=== PATIENT | male | born 1950 | race African-American/Black ===

== ENCOUNTER 2016-05-15 14:48 | Inpatient (IN) | payer OTHER, MEDICARE ==
[2016-05-15] VITALS (12 sets, daily range): BP systolic 140–171; BP diastolic 75–98; PULSE 47–61; RESP 15–20; TEMP 98–98.3; O2SAT 96–100
[~2016-05-15] VITALS: Ht 188 cm; Wt 94.4 kg
[2016-05-15] MEDS ORDERED: SODIUM CHLORIDE 0.9% FLUSH 5 ML FLUSH IVF PRN ×2 (15:30→17:30)
--- NOTE | 2016-05-15 15:40 | PD ---
HPI Chief Complaint: Neuro Symptoms/ Deficits Time Seen by Provider: 15:05 Travel History International Travel<30 days: No Contact w/Intl Traveler<30days: No Traveled to known affect area: No History of Present Illness HPI This is a 65-year-old male presents emergency department for complaints of double vision which she awoke with this morning approximately 04 30. Patient is also been complaining of some weakness and an unsteady gait. Patient does have a history of stroke leaving some mild unsteady gait that this states this is worse. Patient states he only has double vision when he opens both of his eyes but when he covers his right eye the double vision goes away. States he also has some blurred vision in his right eye. Denies any difficulties left eye denies any other focalized weakness. Denies any headaches denies any chest pain abdominal pain nausea vomiting or diarrhea. PFSH Past Medical History Narrative Medical hx of TIA, Hypertension, Hyperlipid. Past Surgical History Narrative Surgical Cholecystectomy, Hernia repair. Social History Tobacco Use: Yes Allergies-Medications (Allergen,Severity, Reaction): Coded Allergies: No Known Allergies (Unverified , 05/15/16) Reported Meds & Prescriptions Reported Meds & Active Scripts Active Reported Metoprolol Succinate ER 24 HR (Metoprolol Succinate) 25 Mg Tab 25 Mg PO DAILY Amlodipine-Valsartan 5-320 Mg Tab 1 Tab PO DAILY Plavix (Clopidogrel Bisulfate) 75 Mg Tab 75 Mg PO DAILY Crestor (Rosuvastatin Calcium) 20 Mg Tab 20 Mg PO DAILY Metformin (Metformin HCl) 1,000 Mg Tab 1,000 Mg PO BIDPC With meals Review of Systems Except as stated in HPI: all other systems reviewed are Neg Physical Exam Narrative GENERAL: Well-developed well-nourished smells of cigarette smoke but in no apparent distress. He is holding his right eye shut. SKIN: Warm and dry. HEAD: Atraumatic. Normocephalic. EYES: Pupils equal and round. No scleral icterus. No injection or drainage. ENT: No nasal bleeding or discharge. Mucous membranes pink and moist. NECK: Trachea midline. No JVD. CARDIOVASCULAR: Regular rate and rhythm. No murmur appreciated. RESPIRATORY: No accessory muscle use. Clear to auscultation. Breath sounds equal bilaterally. GASTROINTESTINAL: Abdomen soft, non-tender, nondistended. Hepatic and splenic margins not palpable. MUSCULOSKELETAL: No obvious deformities. No clubbing. No cyanosis. No edema. NEUROLOGICAL: Awake and alert oriented 3, patient has 5 out of 5 strength in all 4 extremities, cerebellar testing is normal. 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 Patient is not able to convert his eyes on his nose. Remainder of his ocular movements appear to be intact.. Cranial nerves II-XII on the left appear to be intact, cranial nerves II and IV-XII appear to be intact on the right. PSYCHIATRIC: Appropriate mood and affect; insight and judgment normal. Data Data Last Documented VS Vital Signs Date Time Temp Pulse Resp B/P Pulse Ox O2 Delivery O2 Flow Rate FiO2 05/15/16 17:30 48 16 140/75 97 Room Air 05/15/16 14:53 98.3 Orders Electrocardiogram (05/15/16 15:30) Complete Blood Count With Diff (05/15/16 15:30) Comprehensive Metabolic Panel (05/15/16 15:30) Prothrombin Time / Inr (Pt) (05/15/16 15:30) Act Partial Throm Time (Ptt) (05/15/16 15:30) Troponin I (05/15/16 15:30) Thyroid Stimulating Hormone (05/15/16 15:30) Urinalysis - C+S If Indicated (05/15/16 15:30) Chest, Single Ap (05/15/16 15:30) Ct Brain W/O Iv Contrast(Rout) (05/15/16 15:30) Blood Glucose (05/15/16 15:30) Ecg Monitoring (05/15/16 15:30) Iv Access Insert/Monitor (05/15/16 15:30) Oximetry (05/15/16 15:30) Sodium Chloride 0.9% Flush (Ns Flush) (05/15/16 15:30) Aspirin Chew (Aspirin Chew) (05/15/16 15:45) Admit To Inpatient (05/15/16 ) Vital Signs (Adult) Q4H (05/15/16 17:25) Nih Stroke Scale - Nihss .On admission and discharge (05/15/16 17:25) Neuro Checks Q2HX12,Q4H (05/15/16 17:25) Ot Request For Service (05/15/16 17:25) Consult Pt Eval & Treat (05/15/16 17:25) Swallow Eval W/ St (05/15/16 17:25) Case Management Consult (05/15/16 ) Nursing Bedside Swallow Assess .ONCE (05/15/16 17:25) Scd Bilateral/Knee High MARIJA.QSHIFT (05/15/16 17:25) Lipid Profile (05/16/16 06:00) Holter Monitor Recording (05/15/16 ) Mra Brain W/O Contrast (Cow) (05/15/16 ) Mri Brain W/O Contrast (05/15/16 ) Echo 2d Comp W/Dopp(Routine) (05/15/16 ) Resp Oxygen Geovanni C Titrat 1-4 L (05/15/16 ) ^ Hold Medication (05/15/16 17:25) Consult Neurology (05/15/16 ) Sodium Chloride 0.9% Flush (Ns Flush) (05/15/16 21:00) Sodium Chloride 0.9% Flush (Ns Flush) (05/15/16 17:30) Aspirin (Aspirin) (05/16/16 09:00) Atorvastatin (Lipitor) (05/15/16 21:00) Bedside Glucose MARIJA.AC&HS (05/15/16 17:25) ^ Discontinue Insulin Orders (05/15/16 17:25) Insulin Aspart Supplemtl Scale (Novolog (05/15/16 21:00) Dextrose 50% In Abdon (Vial) Inj (D50w (Vi (05/15/16 17:30) Glucagon Inj (Glucagon Inj) (05/15/16 17:30) Facs Teacher / Telemetry MARIJA.Q8H (05/15/16 17:25) Scd Bilateral/Knee High MARIJA.BID (05/15/16 17:25) Inpatient Certification (05/15/16 ) Admit Order (Ed Use Only) (05/15/16 17:32) Us Carotid Arteries Comp Bilat (05/16/16 ) Labs Laboratory Tests Test 05/15/16 05/15/16 15:50 17:00 White Blood Count 8.1 TH/MM3 Red Blood Count 4.70 MIL/MM3 Hemoglobin 13.1 GM/DL Hematocrit 40.2 % Mean Corpuscular Volume 85.5 FL Mean Corpuscular Hemoglobin 27.9 PG Mean Corpuscular Hemoglobin 32.7 % Concent Red Cell Distribution Width 14.3 % Platelet Count 227 TH/MM3 Mean Platelet Volume 9.0 FL Neutrophils (%) (Auto) 64.1 % Lymphocytes (%) (Auto) 25.4 % Monocytes (%) (Auto) 9.0 % Eosinophils (%) (Auto) 0.7 % Basophils (%) (Auto) 0.8 % Neutrophils # (Auto) 5.1 TH/MM3 Lymphocytes # (Auto) 2.1 TH/MM3 Monocytes # (Auto) 0.7 TH/MM3 Eosinophils # (Auto) 0.1 TH/MM3 Basophils # (Auto) 0.1 TH/MM3 CBC Comment DIFF FINAL Differential Comment Prothrombin Time 10.9 SEC Prothromb Time International 1.0 RATIO Ratio Activated Partial 27.3 SEC Thromboplast Time Sodium Level 142 MEQ/L Potassium Level 4.2 MEQ/L Chloride Level 107 MEQ/L Carbon Dioxide Level 27.9 MEQ/L Anion Gap 7 MEQ/L Blood Urea Nitrogen 17 MG/DL Creatinine 0.89 MG/DL Estimat Glomerular Filtration 103 ML/MIN Rate Random Glucose 160 MG/DL Calcium Level 8.7 MG/DL Total Bilirubin 0.5 MG/DL Aspartate Amino Transf 19 U/L (AST/SGOT) Alanine Aminotransferase 23 U/L (ALT/SGPT) Alkaline Phosphatase 56 U/L Troponin I 0.04 NG/ML Total Protein 6.6 GM/DL Albumin 3.4 GM/DL Thyroid Stimulating Hormone 1.310 uIU/ML 3rd Gen Urine Collection Type CLEAN CATCH Urine Color YELLOW Urine Turbidity CL Urine pH 6.0 Urine Specific [place] 1.027 Urine Protein TRACE mg/dL Urine Glucose (UA) 500 mg/dL Urine Ketones NEG mg/dL Urine Occult Blood NEG Urine Nitrite NEG Urine Bilirubin NEG Urine Leukocyte Esterase NEG Urine RBC 0-3 /hpf Urine WBC 0-2 /hpf Urine Squamous Epithelial 0-5 /hpf Cells Urine Mucus OCC /lpf Microscopic Urinalysis Comment CULT NOT INDICATED MDM Medical Decision Making Medical Screen Exam Complete: Yes Emergency Medical Condition: Yes Interpretation(s) EKG shows normal sinus rhythm. There are low voltages in the limb leads, normal axis and normal R-wave progression. No concerning ST T changes. This normal EKG. Differential Diagnosis Acute CVA, isolated cranial nerve III palsy, internuclear ophthalmoplegia. Narrative Course Patient roomed in the emergency department, workup is initiated patient will be discussed with Dr. Nieves to follow workup and disposition appropriately. Brian Sinclair MD May 15, 2016 15:40
[2016-05-15] MEDS ORDERED: ASPIRIN 81 MG CHEW TAB CHEW ONE (15:45)
--- NOTE | 2016-05-15 15:55 | RADHPO ---
EXAM DATE/TIME: 05/15/2016 15:37 [facility] COMPARISON: No previous studies available for comparison. INDICATIONS : Stroke like symptoms; double vision today. MEDICAL HISTORY : Hypertension. Diabetes mellitus type II. Stroke. SURGICAL HISTORY : None. ENCOUNTER: Initial ACUITY: 1 day PAIN SCORE: 0/10 LOCATION: Bilateral chest FINDINGS: A single view of the chest demonstrates the lungs to be symmetrically aerated without evidence of mas s, infiltrate or effusion. The cardiomediastinal contours are unremarkable. Osseous structures are intact. CONCLUSION: No acute disease. Sam Self MD on May 15, 2016 at 15:53 Board Certified Radiologist. This report was verified electronically.
--- NOTE | 2016-05-15 16:21 | RADHPO ---
EXAM DATE/TIME: 05/15/2016 15:55 [facility] COMPARISON: No previous studies available for comparison. INDICATIONS : Altered mental status. Double vision. Weakness. Unsteady gait. RADIATION DOSE: 61.84 CTDIvol (mGy) MEDICAL HISTORY : Diabetes mellitus type 2. Hypertension. Cerebrovascular disease. SURGICAL HISTORY : None. ENCOUNTER: Initial ACUITY: 1 day PAIN SCALE: 0/10 LOCATION: cranial TECHNIQUE: Multiple contiguous axial images were obtained of the head. Using automated exposure control and adj ustment of the mA and/or kV according to patient size, radiation dose was kept as low as reasonably a chievable to obtain optimal diagnostic quality images. FINDINGS: CEREBRUM: The ventricles are normal for age. No evidence of midline shift, mass lesion, hemorrhage or acute in farction. No extra-axial fluid collections are seen. POSTERIOR FOSSA: The cerebellum and brainstem are intact. The 4th ventricle is midline. The cerebellopontine angle i s unremarkable. EXTRACRANIAL: The visualized portion of the orbits is intact. SKULL: The calvaria is intact. No evidence of skull fracture. CONCLUSION: Normal examination for a patient of this age. Karsten Abdi MD on May 15, 2016 at 16:18 Board Certified Radiologist. This report was verified electronically.
[2016-05-15 16:22] LABS: APTT (PATIENT) 27.3 SEC (24.3-30.1); PROTHROMBIN TIME - PATIENT 10.9 SEC (9.8-11.6)
[2016-05-15] MEDS ORDERED: PLAV75TA29 PO (16:29)
[2016-05-15] MEDS ORDERED: ROSU20 PO (16:29)
[2016-05-15] MEDS ORDERED: METF1000 PO (16:29)
[2016-05-15] MEDS ORDERED: METO25TA6 PO (16:29)
[2016-05-15] MEDS ORDERED: AMLO-170 PO (16:29)
[2016-05-15 16:33] LABS: CHLORIDE 107 MEQ/L (98-107); POTASSIUM 4.2 MEQ/L (3.5-5.1); SODIUM (NA) 142 MEQ/L (136-145)
[2016-05-15 16:37] LABS: ANION GAP 7 MEQ/L (5-15); BICARBONATE 27.9 MEQ/L (21.0-32.0); BLOOD UREA NITROGEN 17 MG/DL (7-18)
[2016-05-15 16:38] LABS: AUTOMATED NEUTROPHIL # 5.1 TH/MM3 (1.8-7.7); BASOPHIL # 0.1 TH/MM3 (0-0.2); BASOPHIL % 0.8 % (0.0-2.0); EOSINOPHIL # 0.1 TH/MM3 (0-0.4); EOSINOPHIL % 0.7 % (0.0-4.0); HEMATOCRIT 40.2 % (39.0-51.0); HEMO FLAGS DIFF FINAL; LYMPH % 25.4 % (9.0-44.0); LYMPHOCYTE # 2.1 TH/MM3 (1.0-4.8); MEAN CELL VOLUME 85.5 FL (80.0-100.0); MEAN CORPUSCULAR HEMOGLOBIN 27.9 PG (27.0-34.0); MEAN CORPUSCULAR HGB CONC 32.7 % (32.0-36.0); NEUT % 64.1 % (16.0-70.0); PLATELET COUNT 227 TH/MM3 (150-450); RED CELL DISTRIBUTION WIDTH 14.3 % (11.6-17.2); WHITE BLOOD COUNT 8.1 TH/MM3 (4.0-11.0)
[2016-05-15 16:40] LABS: ALT (GPT) 23 U/L (12-78); AST (GOT) 19 U/L (15-37); GLOMERULAR FILTRATION RATE 103 ML/MIN (>89)
[2016-05-15 16:42] LABS: TOTAL BILIRUBIN ADULT 0.5 MG/DL (0.2-1.0)
[2016-05-15 16:43] LABS: ALKALINE PHOSPHATASE 56 U/L (45-117)
--- NOTE | 2016-05-15 17:01 | PD ---
Physical Exam Date Seen by Provider: May 15, 2016 Time Seen by Provider: 16:58 Narrative This 65-year-old male says that around 4:00 this morning he got up and felt a bit unsteady. When he got up at 8:00 this morning he noted that his vision was not right". He is not having headache unsteady walking. He has a history of a stroke several years ago. He is supposed to be on Plavix and Crestor but he has not been taking his medication for some time. He also has diabetes and is supposed to take metformin but has not been taking it. He was seen initially by Dr. Sinclair. The scan has been read as negative. His blood sugar is 160 on my assessment he has some mild ptosis of his right eye. He is unable to abduct the right eye. Movement of the left eye appears normal. Sensation of the face is intact. There is no facial asymmetry. Db2 Dba are equal and leg strength is symmetric Data Data Last Documented VS Vital Signs Date Time Temp Pulse Resp B/P Pulse Ox O2 Delivery O2 Flow Rate FiO2 05/15/16 17:00 56 16 99 Room Air 05/15/16 16:30 151/80 05/15/16 14:53 98.3 Orders Electrocardiogram (05/15/16 15:30) Complete Blood Count With Diff (05/15/16 15:30) Comprehensive Metabolic Panel (05/15/16 15:30) Prothrombin Time / Inr (Pt) (05/15/16 15:30) Act Partial Throm Time (Ptt) (05/15/16 15:30) Troponin I (05/15/16 15:30) Thyroid Stimulating Hormone (05/15/16 15:30) Urinalysis - C+S If Indicated (05/15/16 15:30) Chest, Single Ap (05/15/16 15:30) Ct Brain W/O Iv Contrast(Rout) (05/15/16 15:30) Blood Glucose (05/15/16 15:30) Ecg Monitoring (05/15/16 15:30) Iv Access Insert/Monitor (05/15/16 15:30) Oximetry (05/15/16 15:30) Sodium Chloride 0.9% Flush (Ns Flush) (05/15/16 15:30) Aspirin Chew (Aspirin Chew) (05/15/16 15:45) Labs Laboratory Tests Test 05/15/16 05/15/16 15:50 17:00 White Blood Count 8.1 TH/MM3 Red Blood Count 4.70 MIL/MM3 Hemoglobin 13.1 GM/DL Hematocrit 40.2 % Mean Corpuscular Volume 85.5 FL Mean Corpuscular Hemoglobin 27.9 PG Mean Corpuscular Hemoglobin 32.7 % Concent Red Cell Distribution Width 14.3 % Platelet Count 227 TH/MM3 Mean Platelet Volume 9.0 FL Neutrophils (%) (Auto) 64.1 % Lymphocytes (%) (Auto) 25.4 % Monocytes (%) (Auto) 9.0 % Eosinophils (%) (Auto) 0.7 % Basophils (%) (Auto) 0.8 % Neutrophils # (Auto) 5.1 TH/MM3 Lymphocytes # (Auto) 2.1 TH/MM3 Monocytes # (Auto) 0.7 TH/MM3 Eosinophils # (Auto) 0.1 TH/MM3 Basophils # (Auto) 0.1 TH/MM3 CBC Comment DIFF FINAL Differential Comment Prothrombin Time 10.9 SEC Prothromb Time International 1.0 RATIO Ratio Activated Partial 27.3 SEC Thromboplast Time Sodium Level 142 MEQ/L Potassium Level 4.2 MEQ/L Chloride Level 107 MEQ/L Carbon Dioxide Level 27.9 MEQ/L Anion Gap 7 MEQ/L Blood Urea Nitrogen 17 MG/DL Creatinine 0.89 MG/DL Estimat Glomerular Filtration 103 ML/MIN Rate Random Glucose 160 MG/DL Calcium Level 8.7 MG/DL Total Bilirubin 0.5 MG/DL Aspartate Amino Transf 19 U/L (AST/SGOT) Alanine Aminotransferase 23 U/L (ALT/SGPT) Alkaline Phosphatase 56 U/L Troponin I 0.04 NG/ML Total Protein 6.6 GM/DL Albumin 3.4 GM/DL Thyroid Stimulating Hormone 1.310 uIU/ML 3rd Gen Urine Collection Type CLEAN CATCH Urine Color YELLOW Urine Turbidity CL Urine pH 6.0 Urine Specific [place] 1.027 Urine Protein TRACE mg/dL Urine Glucose (UA) 500 mg/dL Urine Ketones NEG mg/dL Urine Occult Blood NEG Urine Nitrite NEG Urine Bilirubin NEG Urine Leukocyte Esterase NEG Urine RBC 0-3 /hpf Urine WBC 0-2 /hpf Urine Squamous Epithelial 0-5 /hpf Cells Urine Mucus OCC /lpf Microscopic Urinalysis Comment CULT NOT INDICATED [facility] Medical Record Reviewed: Yes Supervised Visit with ZAHEER: No Differential Diagnosis Differential includes diabetic third nerve palsy, CVA Narrative Course Patient is complaining of feeling lightheaded and unsteady on his feet. Discussed the case with Dr. Garcia. The patient will be admitted Diagnosis Primary Impression: Third nerve palsy of right eye Additional Impression: Acute CVA (cerebrovascular accident) Aniceto Cortez MD May 15, 2016 17:01
[2016-05-15 17:12] LABS: BLOOD, URINE NEG (NEG); GLUCOSE,URINE 500 mg/dL (NEG); KETONE, URINE NEG (NEG); NITRITE,URINE NEG (NEG)
[2016-05-15 17:23] LABS: METHOD OF COLLECTION CLEAN CATCH
[2016-05-15 17:24] LABS: URINE COLOR YELLOW (YELLW/STRAW)
[2016-05-15 17:26] LABS: MUCUS URINE OCC /lpf (OCC); RBC, URINE 0-3 /hpf (0-3); WBC, URINE 0-2 /hpf (0-5)
[2016-05-15 17:27] LABS: COMMENT (UR) CULT NOT INDICATED; CULTURE IF INDICATED CULT NOT INDICATED; SQUAMOUS EPITHELIAL CELL URINE 0-5 /hpf (0-5)
[2016-05-15] MEDS ORDERED: GLUCAGON 1 MG/ML VIAL IM/SQ PRN (17:30)
[2016-05-15] MEDS ORDERED: DEXTROSE 50% IN WATER 50 ML VIAL(D50) IV PUSH PRN (17:30)
--- NOTE | 2016-05-15 17:44 | HHI.HP ---
[facility] Phys[facility] Non-Staff Admission Diagnosis R 3RD NERVE PALSY, CVA Diagnoses: (1) Third nerve palsy of right eye Travel History International Travel<30 Days: No Contact w/Intl Traveler <30 Da: No Traveled to Known Affected Are: No History of Present Illness This is a pleasant 65-year-old male with past medical history of type 2 diabetes , hypertension and stroke approximately 12 years ago with no residual deficits who presented to the ER this morning after waking up with double vision this morning. Patient woke up with these symptoms of diplopia. When he looked in the mirror he discovered he could not move his right eye to his left. He had some mild symptoms of disequilibrium when walking. Otherwise no paresthesias, slurred speech, dizziness, vertigo, or unilateral weakness. No vision loss or hearing loss. The patient normally takes Plavix however he states he has not taken any of his medications over the past 10 days as he had been traveling. His is also noticed that he has frequent urination however patient denies dysuria. He has not been checking his sugar. He states normally his diabetes is controlled for which he takes metformin. Review of Systems Constitutional: DENIES: Fever, Chills Endocrine: COMPLAINS OF: Polyuria Eyes: COMPLAINS OF: Diplopia, DENIES: Vision loss Ears, nose, mouth, throat: DENIES: Hearing loss, Vertigo Respiratory: DENIES: Cough, Shortness of breath Cardiovascular: DENIES: Chest pain, Lower Extremity Edema Gastrointestinal: DENIES: Abdominal pain, Vomiting Genitourinary: DENIES: Urgency, Dysuria Musculoskeletal: DENIES: Back pain, Neck pain Integumentary: DENIES: Pruritus, Rash Hematologic/lymphatic: DENIES: Lymphadenopathy Neurologic: DENIES: Abnormal gait, Headache, Localized weakness, Paresthesias, Speech Problems, Tremor Psychiatric: DENIES: Anxiety, Confusion Past Family Social History Past Medical History Diabetes Hypertension Hyperlipidemia Previous CVA Reported Medications Allergies Coded Allergies Type Severity Reaction Last Updated Verified No Known Allergies 05/15/16 No Active Scripts Medications Dose Route/Sig Days Date Category Dose Instructions Metoprolol Succinate ER 24 HR (Metoprolol Succinate) 25 Mg Tab 25 Mg PO DAILY 05/15/16 Reported Amlodipine-Valsartan 5-320 Mg Tab 1 Tab PO DAILY 05/15/16 Reported Plavix (Clopidogrel Bisulfate) 75 Mg Tab 75 Mg PO DAILY 05/15/16 Reported Crestor (Rosuvastatin Calcium) 20 Mg Tab 20 Mg PO DAILY 05/15/16 Reported Metformin (Metformin HCl) 1,000 Mg Tab 1,000 Mg PO BIDPC 05/15/16 Reported With meals Allergies: Coded Allergies: No Known Allergies (Unverified , 05/15/16) Family History No history of eye palsies in the family Social History No alcohol tobacco or drug use Physical Exam Vital Signs Vital Signs Date Time Temp Pulse Resp B/P Pulse Ox O2 Delivery O2 Flow Rate FiO2 05/15/16 17:41 99 21 05/15/16 17:00 56 16 99 Room Air 05/15/16 16:30 55 16 151/80 99 Room Air 05/15/16 16:00 55 16 158/85 100 Room Air 05/15/16 15:15 16 98 Room Air 05/15/16 15:10 60 16 98 Room Air 05/15/16 14:53 98.3 61 15 171/92 96 Physical Exam GENERAL: Well-nourished, well-developed patient. SKIN: Warm and dry. HEAD: Normocephalic. EYES: No scleral icterus. No injection or drainage. NECK: Supple, trachea midline. No JVD or lymphadenopathy. CARDIOVASCULAR: Regular rate and rhythm without murmurs, gallops, or rubs. RESPIRATORY: Breath sounds equal bilaterally. No accessory muscle use. GASTROINTESTINAL: Abdomen soft, non-tender, nondistended. EXTREMITIES: No cyanosis, or edema. NEUROLOGICAL: Awake, alert, and oriented x 3. Non-focal. He is unable to abduct his right eye past the midline. All other extraocular muscles intact. Speech normal. Face symmetric. 5 out of 5 strength in all 4 extremities. Laboratory Laboratory Tests Test 05/15/16 05/15/16 15:50 17:00 White Blood Count 8.1 Red Blood Count 4.70 Hemoglobin 13.1 Hematocrit 40.2 Mean Corpuscular Volume 85.5 Mean Corpuscular Hemoglobin 27.9 Mean Corpuscular Hemoglobin 32.7 Concent Red Cell Distribution Width 14.3 Platelet Count 227 Mean Platelet Volume 9.0 Neutrophils (%) (Auto) 64.1 Lymphocytes (%) (Auto) 25.4 Monocytes (%) (Auto) 9.0 Eosinophils (%) (Auto) 0.7 Basophils (%) (Auto) 0.8 Neutrophils # (Auto) 5.1 Lymphocytes # (Auto) 2.1 Monocytes # (Auto) 0.7 Eosinophils # (Auto) 0.1 Basophils # (Auto) 0.1 CBC Comment DIFF FINAL Differential Comment Prothrombin Time 10.9 Prothromb Time International 1.0 Ratio Activated Partial 27.3 Thromboplast Time Sodium Level 142 Potassium Level 4.2 Chloride Level 107 Carbon Dioxide Level 27.9 Anion Gap 7 Blood Urea Nitrogen 17 Creatinine 0.89 Estimat Glomerular Filtration 103 Rate Random Glucose 160 Calcium Level 8.7 Total Bilirubin 0.5 Aspartate Amino Transf 19 (AST/SGOT) Alanine Aminotransferase 23 (ALT/SGPT) Alkaline Phosphatase 56 Troponin I 0.04 Total Protein 6.6 Albumin 3.4 Thyroid Stimulating Hormone 1.310 3rd Gen Urine Collection Type CLEAN CATCH Urine Color YELLOW Urine Turbidity CL Urine pH 6.0 Urine Specific [place] 1.027 Urine Protein TRACE Urine Glucose (UA) 500 Urine Ketones NEG Urine Occult Blood NEG Urine Nitrite NEG Urine Bilirubin NEG Urine Leukocyte Esterase NEG Urine RBC 0-3 Urine WBC 0-2 Urine Squamous Epithelial 0-5 Cells Urine Mucus OCC Microscopic Urinalysis Comment CULT NOT INDICATED Result Diagram: 05/15/16 1550 05/15/16 1550 Imaging Last Impressions Head CT 05/15/16 1530 Signed Impressions: Service Date/Time: May 15:55 - CONCLUSION: Normal examination for a patient of this age. Karsten Abdi MD Chest X-Ray 05/15/16 1530 Signed Impressions: Service Date/Time: May 15:37 - CONCLUSION: No acute disease. Sam Self MD Assessment and Plan Assessment and Plan -Right third nerve palsy - head CT is negative. No other neurologic signs or symptoms. 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 Per neurology will obtain MRI and MRA brain, rule out aneurysm. Doppler carotid. Telemetry. Continue Plavix. Consider ophthalmology consult. Diabetes type II. Hold metformin. Sliding scale insulin. Hypertension -resume medications of brain MRI negative. Hyperlipidemia-continue statin. Previous CVA-continue Plavix. DVT prophylaxis with SCDs. Pilger,Jennifer Danni MD May 15, 2016 17:44
[2016-05-15] MEDS: INSULIN ASPART SUPPLEMENTAL SCALE SQ SCH (20:42)
[2016-05-15] MEDS: SODIUM CHLORIDE 0.9% FLUSH 5 ML FLUSH IVF SCH (20:47)
[2016-05-15] MEDS ORDERED: ATORVASTATIN 10 MG TAB PO SCH (21:00)
[2016-05-16] VITALS: BP 166/100; PULSE 47; RESP 20; TEMP 98; O2SAT 100
[2016-05-16 04:00] VITALS: BP 150/89; PULSE 48; RESP 20; TEMP 97.6; O2SAT 97
[2016-05-16] MEDS: INSULIN ASPART SUPPLEMENTAL SCALE SQ SCH ×2 (06:33→11:00)
[2016-05-16 07:49] LABS: POTASSIUM 3.7 MEQ/L (3.5-5.1)
[2016-05-16 07:53] LABS: BICARBONATE 27.7 MEQ/L (21.0-32.0)
[2016-05-16 08:00] VITALS: BP 140/79; PULSE 50; PULSE 54; RESP 16; TEMP 96.7; O2SAT 98
--- NOTE | 2016-05-16 08:11 | RADHPO ---
EXAM DATE/TIME: 05/16/2016 07:38 [facility] COMPARISON: No previous studies available for comparison. INDICATIONS : Amorosis fugax. MEDICAL HISTORY : Hypertension. Hypercholesterolemia. Cerebrovascular accident. Transient ischemic attack. Diabetes. SURGICAL HISTORY : Cholecystectomy. ENCOUNTER: Initial ACUITY: 1 day PAIN SCORE: 0/10 LOCATION: Bilateral neck PEAK SYSTOLIC VELOCITIES (cm/sec): ICA/CCA RATIO: Right: 1.0 Left: 1.0 ICA: Right: 96 Left: 92 CCA: Right: 100 Left: 89 ECA: Right: 65 Left: 65 VERTEBRAL: Right: 50 antegrade Left: 45 antegrade Elevated flow velocities and ICA/CCA ratios have been found to correlate with increased degrees of vessel stenosis, calculated as percentage of diameter relative to a normal segment of distal ICA/CCA FINDINGS: RIGHT CAROTID: No significant stenosis is visualized. There is minimal plaque in the bulb. The waveforms are within normal limits. LEFT CAROTID: No significant stenosis is visualized. There is minimal plaque in the bulb. The waveforms are within normal limits. VERTEBRAL ARTERIES: Antegrade flow is seen in both vertebral arteries. MISCELLANEOUS: None. CONCLUSION: 1. Minimal carotid bulb atherosclerotic disease bilaterally. However, no significant stenosis is pres ent within either internal carotid artery. 2. Antegrade flow is present within both vertebral arteries. Fernando Zuniga MD on May 16, 2016 at 8:08 Board Certified Radiologist. This report was verified electronically.
[2016-05-16] MEDS: SODIUM CHLORIDE 0.9% FLUSH 5 ML FLUSH IVF SCH (08:41)
[2016-05-16] MEDS ORDERED: ASPIRIN 325 MG TAB PO SCH (09:00)
[2016-05-16] MEDS ORDERED: CLOPIDOGREL 75 MG TAB PO SCH (09:00)
[2016-05-16 09:52] LABS: HDL CHOLESTEROL 52.4 MG/DL (40.0-60.0)
[2016-05-16 12:00] VITALS: BP 138/77; PULSE 56; RESP 16; TEMP 97; O2SAT 96
--- NOTE | 2016-05-16 12:39 | MB ---
cc: WELL[place] WOO M.D. DATE OF CONSULTATION: 05/16/2016 REASON FOR CONSULTATION Double vision. HISTORY OF PRESENT ILLNESS Mr. Sanderson is a very pleasant 65-year-old man who has diabetes. He was well until yesterday morning. Around 4 o'clock in the morning he states he woke up and noted that his balance was off. He went back to bed. When he got up again several hours later he still had balance difficulty and he noticed that he saw double. He had no other neurologic complaints at that time. He did not notice any speech changes or focal weakness or numbness and no headache. He presented to the emergency room where it was felt in the ER that he had a right third nerve palsy. He was admitted for further evaluation. PAST MEDICAL HISTORY 1. Diabetes. He states in the past few weeks he has been busy with work, has not been able to maintain his normal diabetic regimen. Therefore he thinks his glucose may have been somewhat out of control. 2. Hypertension. 3. In the distant past he had a stroke but had no residual deficits from that stroke. 4. Hyperlipidemia. ALLERGIES None known. MEDICATIONS 1. Plavix 75 mg daily since his previous stroke. 2. Lipitor 10 mg daily. NEUROLOGIC EXAMINATION VITAL SIGNS: Blood pressure 150/89, pulse 48 and regular, respiratory rate 20, temperature 97.6 degrees. HIGHER CORTICAL FUNCTIONS: Normal including speech. CRANIAL NERVES: He has a right medial rectus palsy. He has a minimal ptosis on the right. The other extraocular movements are normal. The pupils are 2 mm symmetric and briskly reactive to light bilaterally. Other cranial nerves intact. MOTOR: On motor exam he has normal strength and tone of all groups. He has no drift. Sensation is normal. Reflexes symmetric. CEREBELLAR: No dysmetria. No dysdiadochokinesia in the upper extremities. IMAGING CT of the brain is unremarkable. MRI currently pending. LABORATORY White count 8100, hemoglobin 13.1, hematocrit 40%, platelets 227,000. PT 10.9, INR 1, APTT 27.3. Sodium 143, potassium 3.7, chloride 108, CO2 27, BUN 13, creatinine 0.85, GFR 109. Glucose today is 132, yesterday was 160. LDL and cholesterol are pending. IMPRESSION The patient has an exam finding consistent with a pupil-sparing right cranial nerve III palsy. I do not find anything else on his exam to suggest brainstem involvement. 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 There is no sign of pupil involvement to suggest aneurysm of the posterior communicating artery either. RECOMMENDATION Would proceed with an MRI of the brain as well as an MRA just to be sure there is no sign of stroke in the mesencephalon and also to be sure there is no aneurysm. An echocardiogram is also ordered. He also had a carotid ultrasound which revealed no sign of significant stenosis. If the MRI and the MR angiogram are normal then I feel it is safe from the neurologic standpoint to be discharged home if okay with the primary service. I did reassure the patient that most of these will resolve on their own, that he should follow-up with his primary care physician to ensure his diabetes is controlled. He already notices improvement this morning from yesterday with the double vision as well which is certainly a good sign. Thank you for asking me to see this nice patient. MD NIKOLE Perez/RALF /8:53 AM /12:23 PM
--- NOTE | 2016-05-16 14:30 | RADHPO ---
EXAM DATE/TIME: 05/16/2016 14:13 [facility] COMPARISON: No previous studies available for comparison. INDICATIONS : Unsteady gait. MEDICAL HISTORY : Diabetes mellitus type 2. Diabetes mellitus type 2. SURGICAL HISTORY : Cholecystectomy. Inguinal hernia repair. ENCOUNTER: Initial ACUITY: 2 day PAIN SCORE: 0/10 LOCATION: head Please note a normal MRA of the brain does not entirely exclude the possibility of a small aneurysm, nor the possibility of distal intracranial vessel disease. TECHNIQUE: 3D time of flight MRA was performed. Source images, multiplanar STS MIP, and 3D volume MIP reconstru ctions were reviewed. FINDINGS: There is excellent visualization of the major intracranial arteries out to the second-order branch ve ssels. Left vertebral artery is dominant. There is no evidence for aneurysm, vessel truncation or stenosis, and no evidence for vascular malfor mation. CONCLUSION: Normal examination. Sam Self MD on May 16, 2016 at 14:26 Board Certified Radiologist. This report was verified electronically.
--- NOTE | 2016-05-16 14:31 | RADHPO ---
EXAM DATE/TIME: 05/16/2016 14:13 [facility] COMPARISON: No previous studies available for comparison. INDICATIONS : Unsteady gait. MEDICAL HISTORY : Diabetes mellitus type 2. Hypertension. SURGICAL HISTORY : Cholecystectomy. Inguinal hernia repair. ENCOUNTER: Initial ACUITY: 2 day PAIN SCORE: 0/10 LOCATION: head TECHNIQUE: Multiplanar, multisequence MRI of the brain was performed without contrast. FINDINGS: CEREBRUM: The ventricles are normal for age. No evidence of midline shift, mass lesion, hemorrhage or acute in farction. No extraaxial fluid collections are seen. The pituitary gland and suprasellar cistern are normal in configuration. WHITE MATTER: No significant signal abnormalities are seen in the white matter. POSTERIOR FOSSA: The cerebellum and brainstem are intact. The 4th ventricle is midline. The cerebellopontine angle is unremarkable. The cerebellar tonsils are normal in position. DIFFUSION IMAGING: No focal areas of restricted diffusion are seen. No evidence of acute infarction. EXTRACRANIAL: The visualized portions of the orbits and paranasal sinuses are unremarkable. CONCLUSION: No evidence of acute infarct, hemorrhage, mass or edema. Sam Self MD on May 16, 2016 at 14:29 Board Certified Radiologist. This report was verified electronically.
--- NOTE | 2016-05-16 15:10 | HHI.PR ---
Subjective Remarks Follow-up on patient with right third nerve palsy. Patient reports that he feels well today. States he has improvement in his vision since his admission though he does still have some occasional double vision. Ambulated well with physical therapy earlier today. Denies any acute medical complaints at this time. Objective Vitals Vital Signs Date Time Temp Pulse Resp B/P Pulse Ox O2 Delivery O2 Flow Rate FiO2 05/16/16 08:00 96.7 50 16 140/79 98 05/16/16 08:00 54 05/16/16 04:00 97.6 48 20 150/89 97 05/16/16 00:00 98.0 47 20 166/100 100 05/15/16 23:54 47 05/15/16 23:26 98.0 50 20 165/98 97 05/15/16 22:56 18 97 05/15/16 21:31 97 21 05/15/16 21:18 47 18 97 Room Air 05/15/16 21:18 47 18 164/85 97 Room Air 05/15/16 19:22 48 18 99 Room Air 05/15/16 19:22 48 18 160/86 99 Room Air 05/15/16 18:00 50 16 145/76 05/15/16 17:41 99 21 05/15/16 17:30 48 16 140/75 97 Room Air 05/15/16 17:00 56 16 99 Room Air 05/15/16 16:30 55 16 151/80 99 Room Air 05/15/16 16:00 55 16 158/85 100 Room Air 05/15/16 15:15 16 98 Room Air 05/15/16 15:10 60 16 98 Room Air 05/15/16 14:53 98.3 61 15 171/92 96 I/O 05/15/16 05/15/16 05/15/16 05/16/16 05/16/16 05/16/16 07:00 15:00 23:00 07:00 15:00 23:00 Intake Total 640 ml Output Total 600 ml Balance -600 ml 640 ml Intake Oral 640 ml Output Urine Total 600 ml # Voids 1 3 # Bowel Movements 0 Result Diagram: 05/15/16 1550 05/16/16 0710 Imaging Last 48 hours Impressions Carotid Artery Ultrasound 05/16/16 0000 Signed Impressions: Service Date/Time: Monday, May 16, 2016 07:38 - CONCLUSION: 1. Minimal carotid bulb atherosclerotic disease bilaterally. However, no significant stenosis is present within either internal carotid artery. 2. Antegrade flow is present within both vertebral arteries. Fernando Zuniga MD Head CT 05/15/16 1530 Signed Impressions: Service Date/Time: May 15:55 - CONCLUSION: Normal examination for a patient of this age. Karsten Abdi MD Chest X-Ray 05/15/160 Signed Impressions: Service Date/Time: May 15:37 - CONCLUSION: No acute disease. Sam Self MD Objective Remarks GENERAL: Well-nourished, well-developed patient. Very pleasant. A&Ox3. SKIN: Warm and dry. HEAD: Normocephalic. EYES: No scleral icterus. No injection or drainage. NECK: Supple, trachea midline. No JVD or lymphadenopathy. CARDIOVASCULAR: Regular rate and rhythm without murmurs, gallops, or rubs. RESPIRATORY: Breath sounds equal bilaterally. No accessory muscle use. GASTROINTESTINAL: Abdomen soft, non-tender, nondistended. EXTREMITIES: No cyanosis, or edema. NEUROLOGICAL: Awake, alert, and oriented x 3. Non-focal. All extraocular movements appear normal and intact. No deficits appreciated on exam. Speech normal. Face symmetric. 5 out of 5 strength in all 4 extremities. Medications and IVs Current Medications Medications (Trade) Dose Ordered Sig/Avani Route Start Time Stop Time Status Last Admin (NS Flush) 2 ml BID IVF 05/15/16 21:00 05/16/16 08:41 (NS Flush) 2 ml UNSCH PRN IVF 05/15/16 17:30 (Lipitor) 10 mg HS PO 05/15/16 21:00 05/15/16 20:46 (D50w (Vial) Inj) 25 ml UNSCH PRN IV PUSH 05/15/16 17:30 (Glucagon Inj) 1 mg UNSCH PRN IM/SQ 05/15/16 17:30 (Plavix) 75 mg DAILY PO 05/16/16 09:00 05/16/16 08:39 A/P Problem List: (1) Third nerve palsy of right eye ICD Code: H49.01 Status: Acute Assessment and Plan 65-year-old male with past medical history of type 2 diabetes, hypertension and stroke approximately 12 years ago with no residual deficits who presented to the ER this morning after waking up with double vision on the morning of admission. Right third nerve palsy - Improved - Likely secondary to his diabetes - Neurology is following, very much appreciate his assistance - Brain MRI and MRA completed, report pending - Carotid ultrasound shows minimal atherosclerotic disease bilaterally without significant stenosis - Echocardiogram completed, report pending - Lipid panel, TG 114, LDL 85, HDL 52.4 Diabetes type II - blood sugar with good control - Hold metformin - Continue sliding scale insulin. Hypertension - resume medications if brain MRI negative. Hyperlipidemia - continue statin. Previous CVA - No residual deficit - continue Plavix. DVT prophylaxis - SCDs Written by Shanice Longoria, acting as scribe for Dr. Dumont on 05/16/16 at 15: 08. Patient doing well. MRI and MRA of the brain unremarkable. Patient will need to follow up with PCP for echocardiogram results. Patient may be discharged to home with specific instructions to follow up with Dr. Garcia of Neurology in 2 weeks and with PCP in one week. Discharge patient to home Condition on discharge: Improved Heart healthy/diabetic Diet as tolerated Ad Stephanie activity Rx written: None, resume home medications as previously prescribed Follow-up with primary care physician in one week and Dr. Garcia of Neurology in 2 weeks. Medical Decision Making Impression and Plan The exam, history, and the medical decision-making described in the above note were completed with the assistance of the mid-level provider. I reviewed and agree with the findings presented. I attest that I had a [id number] encounter with the patient on the same day, and personally performed and documented my assessment and findings in the medical record. Does not appear to have had a stroke. Holter monitor can be ordered as an outpatient through the neurology office if deemed necessary. Imaging unremarkable. Symptoms are improved. Patient be discharged home to follow-up with neurology and primary care physician of choice. Discussed at length with patient. Echo reviewed and wnl Shanice Longoria May 16, 2016 15:10 Ashley Dumont MD May 16, 2016 16:47
--- NOTE | 2016-05-16 15:24 | HHI.DCPOC ---
Discharge Care Plan Diagnosis: (1) Diabetes (2) Third nerve palsy of right eye (3) Hypertension Goals to Promote Your Health * To prevent worsening of your condition and complications * To maintain your health at the optimal level Directions to Meet Your Goals Take your medications as prescribed Follow your dietary instruction Follow activity as directed Keep your appointments as scheduled Take your immunizations and boosters as scheduled If your symptoms worsen call your PCP, if no PCP go to Urgent Care Center or Emergency Room Smoking is Dangerous to Your Health. Avoid second hand smoke Call the 24-hour hour crisis hotline for domestic abuse at Shanice Longoria May 16, 2016 15:24 Ashley Dumont MD May 16, 2016 16:48
[2016-05-16] MEDS ORDERED: NON-FORMULARY DRUG (Amlodipine-Valsartan 1 TAB) PO SCH (15:30)
[2016-05-16] MEDS ORDERED: amLODIPine BESYLATE 5 MG TAB PO SCH (16:00)
[2016-05-16] MEDS ORDERED: VALSARTAN 160 MG TAB PO SCH (16:00)
[2016-05-16] MEDS ORDERED: METOPROLOL SUCCINATE 25 MG EXTENDED RELEASE TAB PO SCH (16:00)
--- NOTE | 2016-05-16 19:03 | EC ---
Study Study Date:05/16/2016 STUDY CONCLUSIONS SUMMARY - Left ventricle: The cavity size was normal. Wall thickness was normal. Systolic function was normal. The estimated ejection fraction was in the range of 55% to 60%. Wall motion was normal; there were no regional wall motion abnormalities. - Aortic valve: Valve area: 3.24cm^2(VTI). Valve area: 3.29cm^2 (Vmax). If LV function is below 40, please consider prescribing an ACEI or ARB or document rationale for non-use. PROCEDURE DATA STUDY STATUS: Elective. Procedure: Transthoracic echocardiography. Image quality was good. Scanning was performed from the parasternal, apical, and subcostal acoustic windows. Study completion: The patient tolerated the procedure well. Transthoracic echocardiography. M-mode, complete 2D, complete spectral Doppler, and color Doppler. Height: Height: 74in. Weight: Weight: 211.6lb. Body mass index: BMI: 27.2kg/m^2. Body surface area: BSA: 2.23m^2. Patient status: Inpatient. CARDIAC ANATOMY LEFT VENTRICLE: The cavity size was normal. Wall thickness was normal. Systolic function was normal. The estimated ejection fraction was in the range of 55% to 60%. Wall motion was normal; there were no regional wall motion abnormalities. AORTIC VALVE: Trileaflet; normal thickness leaflets. Doppler: Transvalvular velocity was within the normal range. There was no stenosis. No regurgitation. Valve area: 3.24cm^2(VTI). Indexed valve area: 1.45cm^2/m^2 (VTI). Valve area: 3.29cm^2 (Vmax). Indexed valve area: 1.48cm^2/m^2 (Vmax). Mean gradient: 4mm Hg (S). AORTA: Aortic root: The aortic root was normal in size. MITRAL VALVE: Structurally normal valve. Doppler: Transvalvular velocity was within the normal range. There was no evidence for stenosis. No regurgitation. Peak gradient: 2mm Hg (D). LEFT ATRIUM: The atrium was normal in size. RIGHT VENTRICLE: The cavity size was normal. Wall thickness was normal. PULMONIC VALVE: Doppler: Transvalvular velocity was within the normal range. There was no evidence for stenosis. No regurgitation. TRICUSPID VALVE: Structurally normal valve. Doppler: Transvalvular velocity was within the normal range. No regurgitation. PULMONARY ARTERY: The main pulmonary artery was normal-sized. Systolic pressure was within the normal range. RIGHT ATRIUM: The atrium was normal in size. PERICARDIUM: There was no pericardial effusion. SYSTEMIC VEINS: Inferior vena cava: The vessel was normal in size. Patient weight: 211.6lb _Ejection fraction:_ 65-75% _Fractional shortening:_ 32% up to 5Kg 5-11.5Kg 11.6-22.9Kg 23-45Kg 45-57Kg Aortic Root 7-13 <17 13-22 17-27 17-27 LA diam 6-13 <23 24-38 33-47 37-40 RVID 10-17 7-15 7-15 7-18 8-17 LVIDd 12-22 <32 24-38 33-47 37-40 LVPW 2-4 3-6 5-7 6-8 7-8 IVS 2-4 3-6 5-7 6-8 7-8 BASIC MEASUREMENTS ADULT NORMAL Left ventricle LV internal dimension, ED, chordal *58.5 mm 43-52 level, PLAX LV internal dimension, ES, chordal *38.8 mm 23-38 level, PLAX Fractional shortening, chordal level, 34 % >29 PLAX LV posterior wall thickness, ED 8.68 mm IVS/LVPW ratio, ED 0.97 <1.3 Ventricular septum Septal thickness, ED 8.38 mm Aortic valve Leaflet separation 22 mm 15-26 Aorta Root diameter, ED 34 mm Left atrium Anterior-posterior dimension 33 mm Anterior-posterior dimension index 1.48 cm/m^2 <2.2 BASIC MEASUREMENTS ADULT NORMAL Aortic valve Leaflet separation 22 mm 15-26 DOPPLER MEASUREMENTS ADULT NORMAL Aortic valve Peak velocity, S 130 cm/s Mean velocity, S 85.2 cm/s VTI, S 29.2 cm Mean gradient, S 4 mm Hg Valve area, VTI 3.24 cm^2 Valve area index, VTI 1.45 cm^2/m^2 Valve area, Vmax 3.29 cm^2 Valve area index, Vmax 1.48 cm^2/m^2 Mitral valve Peak E-wave velocity 75.5 cm/s Peak A-wave velocity 73.5 cm/s Deceleration time *278 ms 150-230 Peak gradient, D 2 mm Hg Peak E/A ratio 1 Pulmonic valve Peak velocity, S 59.4 cm/s LEGEND: Mean values are shown as u=mean value. Asterisk (*) reid values outside specified normal range. Prepared and signed by Yoav Kirk [id number]
--- NOTE | 2016-05-16 19:54 | EKG ---
Date Performed: 05/15/2016 Time Performed: 16:11:12 PTAGE: 65 years EKG: Sinus bradycardia Low QRS voltages in limb leads Borderline ECG NO PREVIOUS TRACING DOCTOR: Nikita Pérez Interpretating Date/Time 05/16/2016 19:52:48
== END 2016-05-16 16:00 | disposition home or self-care (01) | DRG 639 ==
LOC: PHED 14:48 → PHEDA 17:33 → PH3A 22:50
PROVIDERS: ADMIT Hospitalist; ATTEND Hospitalist
DX: E11.69 Type 2 diabetes mellitus with other specified complication (principal); H49.01 Third [oculomotor] nerve palsy, right eye; I10 Essential (primary) hypertension; H53.2 Diplopia; R26.81 Unsteadiness on feet; E78.5 Hyperlipidemia, unspecified; H02.401 Unspecified ptosis of right eyelid; R35.0 Frequency of micturition; Z72.0 Tobacco use; Z86.73 Personal history of transient ischemic attack (TIA), and cerebral infarction without residual deficits; Z79.84 Long term (current) use of oral hypoglycemic drugs
CPT/HCPCS: 70450; 70544; 70551; 71010; 80048; 80053; 80061; 81001; 82948; 84443; 84484; 85025; 85610; 85730; 93005; 93306; 93880; J1815

== ENCOUNTER 2017-05-12 04:57 | Observation (INO) | payer MEDICARE, OTHER ==
[~2017-05-12] VITALS: Ht 188 cm; Wt 95.8 kg
[2017-05-12] VITALS (10 sets, daily range): BP systolic 138–197; BP diastolic 81–93; PULSE 46–54; RESP 16–20; TEMP 96.7–98.7; O2SAT 95–98
[~2017-05-12 04:57] MED LIST: AMLO-170 PO; METF1000 PO; METO1TAB42 PO; PLAV75TA29 PO; ROSU20 PO
[2017-05-12] MEDS ORDERED: LOSA100T PO (05:13)
[2017-05-12] MEDS ORDERED: SODIUM CHLORIDE 0.9% FLUSH 10 ML FLUSH IVF PRN (05:15)
--- NOTE | 2017-05-12 05:17 | PD ---
HPI Chief Complaint: Respiratory Symptoms Time Seen by Provider: 05:10 Travel History International Travel<30 days: No Contact w/Intl Traveler<30days: No Traveled to known affect area: No History of Present Illness HPI 66-year-old male presents to the emergency department by private transportation in the care of his for complaint of shortness of breath. Patient states just prior to arrival to the emergency department awakened from sleep feeling as if he could not catch his breath or breathe properly. Patient has history of hypertension dyslipidemia diabetes CVA takes Plavix and smokes cigarettes. Patient denies history of recent long distance travel protracted bedrest surgical procedure clotting disorder lower extremity pain or swelling and no report of hemoptysis. Also no report of pleuritic chest pain. Patient recently exposed to influenza virus and did not have the influenza vaccine. Patient is not aware of fever but has had chills. Cough has been nonproductive. PFSH Past Medical History Narrative Medical Diabetes hypertension dyslipidemia CVA tobaccoism; herniorrhaphy, cholecystectomy; nursing notes reviewed Heart Rhythm Problems: No Cardiovascular Problems: Yes High Cholesterol: Yes Congestive Heart Failure: No Cerebrovascular Accident: Yes (tia approx 12 years ago) Diabetes: Yes Endocrine: Yes Genitourinary: Yes (FREQUENCY, VOIDS MANY TIMES A NIGHT) Hypertension: Yes Musculoskeletal: Yes (TORN LEFT ROTATOR CUFF) Neurologic: Yes Respiratory: No Thyroid Disease: No Past Surgical History Abdominal Surgery: Yes (rosaline, HERNIA REPAIR X3) Body Medical Devices: WIRE MESH IN ABD Cholecystectomy: Yes Social History Alcohol Use: No Tobacco Use: Yes Substance Use: No Allergies-Medications (Allergen,Severity, Reaction): Coded Allergies: No Known Allergies (Unverified Adverse Reaction, Unknown, 05/12/17) Reported Meds & Prescriptions Reported Meds & Active Scripts Active Reported Losartan (Losartan Potassium) 100 Mg Tab 100 Mg PO DAILY Metoprolol Succinate ER 24 HR (Metoprolol Succinate) 25 Mg Tab 25 Mg PO DAILY Plavix (Clopidogrel Bisulfate) 75 Mg Tab 75 Mg PO DAILY Crestor (Rosuvastatin Calcium) 20 Mg Tab 20 Mg PO DAILY Metformin (Metformin HCl) 1,000 Mg Tab 1,000 Mg PO BIDPC With meals Review of Systems Except as stated in HPI: all other systems reviewed are Neg General / Constitutional: No: Fever, Chills HENT: Positive: Congestion, No: Sore Throat Cardiovascular: No: Chest Pain or Discomfort Respiratory: Positive: Cough, Shortness of Breath, No: Wheezing, Hemoptysis, Pleuritic Pain Gastrointestinal: No: Nausea, Vomiting, Abdominal Pain Genitourinary: No: Flank Pain Musculoskeletal: No: Myalgias, Arthralgias Skin: No Rash Neurologic: No: Weakness Psychiatric: No: Anxiety Hematologic/Lymphatic: No: Lymph Node Enlargement Physical Exam Narrative GENERAL: Well-developed well-nourished male no acute distress no respiratory distress room air O2 saturation 98% SKIN: Warm and dry. HEAD: Normocephalic. EYES: No scleral icterus. No injection or drainage. NECK: Supple, trachea midline. No JVD or lymphadenopathy. CARDIOVASCULAR: Regular rate and rhythm without murmurs, gallops, or rubs. RESPIRATORY: Breath sounds equal bilaterally. No accessory muscle use. GASTROINTESTINAL: Abdomen soft, non-tender, nondistended. MUSCULOSKELETAL: No cyanosis, or edema. BACK: Nontender without obvious deformity. No CVA tenderness. Data Data Last Documented VS Vital Signs Date Time Temp Pulse Resp B/P (MAP) Pulse Ox O2 Delivery O2 Flow Rate FiO2 05/12/17 05:47 51 16 177/87 (117) 97 Room Air 05/12/17 05:01 98.0 Orders Orders Complete Blood Count With Diff (05/12/17 05:10) B-Type Natriuretic Peptide (05/12/17 05:10) Act Partial Throm Time (Ptt) (05/12/17 05:10) Prothrombin Time / Inr (Pt) (05/12/17 05:10) Magnesium (Mg) (05/12/17 05:10) Ckmb (Isoenzyme) Profile (05/12/17 05:10) Troponin I (05/12/17 05:10) Influenzae A/B Antigen (05/12/17 05:10) Iv Access Insert/Monitor (05/12/17 05:10) Electrocardiogram (05/12/17 05:10) Ecg Monitoring (05/12/17 05:10) Oximetry (05/12/17 05:10) Oxygen Administration (05/12/17 05:10) Chest, Single Ap (05/12/17 05:10) Sodium Chloride 0.9% Flush (Ns Flush) (05/12/17 05:15) Basic Metabolic Panel (Bmp) (05/12/17 05:20) CKMB (05/12/17 05:20) CKMB% (05/12/17 05:20) Aspirin Chew (Aspirin Chew) (05/12/17 06:30) Nitroglycerin 2% Oint (Nitroglycerin 2% (05/12/17 06:30) Oseltamivir (Tamiflu) (05/12/17 06:30) Labs Laboratory Tests Test 05/12/17 05:20 White Blood Count 10.0 TH/MM3 Red Blood Count 4.88 MIL/MM3 Hemoglobin 13.3 GM/DL Hematocrit 41.8 % Mean Corpuscular Volume 85.8 FL Mean Corpuscular Hemoglobin 27.4 PG Mean Corpuscular Hemoglobin Concent 31.9 % Red Cell Distribution Width 13.7 % Platelet Count 284 TH/MM3 Mean Platelet Volume 8.3 FL Neutrophils (%) (Auto) 72.3 % Lymphocytes (%) (Auto) 21.0 % Monocytes (%) (Auto) 5.0 % Eosinophils (%) (Auto) 1.1 % Basophils (%) (Auto) 0.6 % Neutrophils # (Auto) 7.2 TH/MM3 Lymphocytes # (Auto) 2.1 TH/MM3 Monocytes # (Auto) 0.5 TH/MM3 Eosinophils # (Auto) 0.1 TH/MM3 Basophils # (Auto) 0.1 TH/MM3 CBC Comment DIFF FINAL Differential Comment Prothrombin Time 10.1 SEC Prothromb Time International Ratio 1.0 RATIO Activated Partial Thromboplast Time 26.8 SEC Blood Urea Nitrogen 13 MG/DL Creatinine 0.67 MG/DL Random Glucose 145 MG/DL Calcium Level 8.5 MG/DL Magnesium Level 2.4 MG/DL Sodium Level 142 MEQ/L Potassium Level 3.7 MEQ/L Chloride Level 107 MEQ/L Carbon Dioxide Level 28.5 MEQ/L Anion Gap 7 MEQ/L Estimat Glomerular Filtration Rate 143 ML/MIN Total Creatine Kinase 151 U/L Creatine Kinase MB 1.1 NG/ML Troponin I 0.08 NG/ML B-Type Natriuretic Peptide 51 PG/ML MDM Medical Decision Making Medical Screen Exam Complete: Yes Emergency Medical Condition: Yes Medical Record Reviewed: Yes Interpretation(s) EKG: Sinus bradycardia no acute ST elevation or injury pattern; QS septally for age-indeterminate septal infarct troponin I: 0.08, elevated Differential Diagnosis Bronchitis, pneumonia, influenza, CHF, ACS, myocardial infarction, PE Narrative Course Well-developed well-nourished 66-year-old male with multiple risk factors as well as tobaccoism presents to the emergency department for shortness of breath that awakened him from sleep. No prior history of orthopnea or PND. No peripheral edema. No chest pain. Recent exposure to influenza the patient denies productive cough or fever or chills. Patient currently not reporting shortness of breath. Patient placed on manager cardiac with continuous pulse oximetry IV access obtained specimens collected and sent for resulting EKG sinus bradycardia with QRS septally age-indeterminate no acute ST elevation Patient resting comfortably waiting on lab results Troponin I is elevated 0.08; patient again denies any chest pain currently no shortness of breath; CAD risk: Male age 66 hypertension dyslipidemia diabetes tobaccoism; therefore concern dyspnea may be his anginal equivalent and patient will be admitted for ongoing serial cardiac enzymes nitroglycerin to chest wall aspirin and heparinization as well as management for influenza A. Call placed to [facility] service discussed with Dr Arita Physician Communication Physician Communication discussed with [facility] Diagnosis Primary Impression: Dyspnea Qualified Codes: R06.01 - Orthopnea Additional Impressions: Elevated troponin I level Influenza A ACS (acute coronary syndrome) Admitting Information Admitting Physician Requests: Admit Carmela Poe MD May 12, 2017 05:17
--- NOTE | 2017-05-12 05:25 | RADRPT ---
EXAM DATE/TIME: 05/12/2017 05:13 [place] COMPARISON: CHEST SINGLE AP, May 15, 2016, 15:37. INDICATIONS : Shortness of breath. MEDICAL HISTORY : Hypertension. Diabetes mellitus type II. Stroke. SURGICAL HISTORY : None. ENCOUNTER: Initial ACUITY: 1 day PAIN SCORE: 0/10 LOCATION: Bilateral chest FINDINGS: Portable AP view of the chest demonstrates a normal-sized cardiac silhouette. Lungs are underinflated with elevation of the left hemidiaphragm. No effusion, consolidation, or pneumothorax is identified. The bones and soft tissues demonstrate no acute finding. CONCLUSION: Stable chest x-ray without an acute cardiopulmonary abnormality identified. Fernando Zuniga MD on May 12, 2017 at 5:23 Board Certified Radiologist. This report was verified electronically.
[2017-05-12 05:34] LABS: AUTOMATED NEUTROPHIL # 7.2 TH/MM3 (1.8-7.7); BASOPHIL # 0.1 TH/MM3 (0-0.2); BASOPHIL % 0.6 % (0.0-2.0); EOSINOPHIL # 0.1 TH/MM3 (0-0.4); EOSINOPHIL % 1.1 % (0.0-4.0); HEMATOCRIT 41.8 % (39.0-51.0); HEMOGLOBIN 13.3 GM/DL (13.0-17.0); LYMPHOCYTE # 2.1 TH/MM3 (1.0-4.8); MEAN CELL VOLUME 85.8 FL (80.0-100.0); MEAN CORPUSCULAR HEMOGLOBIN 27.4 PG (27.0-34.0); MEAN CORPUSCULAR HGB CONC 31.9 % (32.0-36.0); MEAN PLATELET VOLUME 8.3 FL (7.0-11.0); MONOCYTE # 0.5 TH/MM3 (0-0.9); NEUT % 72.3 % (16.0-70.0); PLATELET COUNT 284 TH/MM3 (150-450); RED BLOOD COUNT 4.88 MIL/MM3 (4.50-5.90); RED CELL DISTRIBUTION WIDTH 13.7 % (11.6-17.2)
[2017-05-12 05:58] LABS: CHLORIDE 107 MEQ/L (98-107); SODIUM (NA) 142 MEQ/L (136-145)
[2017-05-12 06:01] LABS: BICARBONATE 28.5 MEQ/L (21.0-32.0); BLOOD UREA NITROGEN 13 MG/DL (7-18); CALCIUM 8.5 MG/DL (8.5-10.1); GLUCOSE,RANDOM 145 MG/DL (74-106); MAGNESIUM 2.4 MG/DL (1.5-2.5)
[2017-05-12 06:02] LABS: PROTHROMBIN TIME - PATIENT 10.1 SEC (9.8-11.6)
[2017-05-12 06:05] LABS: CREATININE 0.67 MG/DL (0.60-1.30); GLOMERULAR FILTRATION RATE 143 ML/MIN (>89)
[2017-05-12 06:09] LABS: TROPONIN I 0.08 NG/ML (0.02-0.05)
[2017-05-12] MEDS ORDERED: ASPIRIN 81 MG CHEW TAB CHEW ONE (06:30)
[2017-05-12] MEDS ORDERED: NITROGLYCERIN 2% OINT 1 GM PACKET TOPICAL ONE (06:30)
[2017-05-12] MEDS ORDERED: OSELTAMIVIR PHOSPHATE 75 MG CAP PO ONE (06:30)
[2017-05-12] MEDS ORDERED: GLUCAGON 1 MG/ML VIAL OTHER PRN (06:45)
[2017-05-12] MEDS ORDERED: DEXTROSE 50% IN WATER 50 ML VIAL(D50) IV PUSH PRN (06:45)
[2017-05-12] MEDS ORDERED: SODIUM CHLORIDE 0.9% FLUSH 10 ML FLUSH IV FLUSH PRN (06:45)
[2017-05-12] MEDS ORDERED: HEPARIN-D5W 25,000 U/250 ML 250 ML IV PRN (06:45)
[2017-05-12] MEDS ORDERED: HEPARIN SODIUM - IV 10,000 UNITS/10 ML VIAL IV PUSH ONE (06:45)
[2017-05-12] MEDS ORDERED: METOPROLOL SUCCINATE 25 MG EXTENDED RELEASE TAB PO SCH (09:00)
[2017-05-12] MEDS: SODIUM CHLORIDE 0.9% FLUSH 10 ML FLUSH IV FLUSH SCH ×2 (09:00→20:52)
[2017-05-12] MEDS: CLOPIDOGREL 75 MG TAB PO SCH ×2 (09:00→11:28)
[2017-05-12] MEDS: INSULIN ASPART SUPPLEMENTAL SCALE SQ SCH ×4 (09:07→20:53)
--- NOTE | 2017-05-12 10:38 | MB ---
cc: Nikita Pérez DO DATE OF CONSULT: 05/12/2017 REASON FOR CONSULTATION: Elevated troponin. HISTORY OF PRESENT ILLNESS: Chris Sanderson is a pleasant 66-year-old male who presented to [facility] Emergency Room on 05/12/2017 due to shortness of breath. The patient states that he was awakened from sleep and felt he could not catch his breath. He has had a cough for the past 2 days. With this, he has been bringing up some mucus which is figueroa to brown in color. He does not believe he has had any fevers or chills. Supposedly, he has been exposed to the influenza virus recently and has not had the influenza vaccine. He denies chest pain. He is usually a very active person and does not get chest pain or shortness of breath with activities. PAST MEDICAL HISTORY: 1. Diabetes. 2. Hypertension. 3. Dyslipidemia. 4. CVA. 5. Tobacco abuse. PAST SURGICAL HISTORY: 1. Hernia repair. 2. Cholecystectomy. ALLERGIES: NO KNOWN DRUG ALLERGIES. MEDICATIONS: 1. Plavix 75 mg daily. 2. Crestor 20 mg daily. 3. Toprol XL 25 mg daily. 4. Losartan 100 mg daily. 5. Metformin 1000 mg twice a day. FAMILY HISTORY: Denies premature coronary artery disease or sudden cardiac within the family. SOCIAL HISTORY: Denies alcohol or drug abuse. Does smoke cigarettes. REVIEW OF SYSTEMS: Fourteen systems were reviewed including osteopathic pertinent positives and negatives as above, otherwise negative. PHYSICAL EXAM: VITAL SIGNS: Temperature 98.7, heart rate 51, blood pressure 149/84, respirations 18, pulse ox 97% on room air. GENERAL: The patient appears well in no acute distress alert, awake and oriented x 3. HEENT: Extraocular muscles intact. Mucous membranes moist. NECK: Supple. No JVD at 45 degrees. No carotid bruits heard bilaterally. Carotid upstroke is brisk in nature. HEART: Regular rate and rhythm. Positive first and second heart sounds with no noted murmurs, gallops or rubs. LUNGS: Decreased breath sounds bilaterally with minimal rhonchi noted. No rales are noted bilaterally. ABDOMEN: Soft, nontender and nondistended. No organomegaly noted. EXTREMITIES: Show no clubbing, cyanosis or edema. Femoral and distal pulses are intact bilaterally. NEUROLOGICALLY: No focal deficits. SKIN: Warm, dry and intact. OSTEOPATHICALLY: No kyphoscoliosis, lordosis or paraspinal tender points. LAB WORK: Hemoglobin 13.3, hematocrit 41.8, platelets 284. Potassium 3.7, BUN 13, creatinine 0.67, troponin 0.08, BNP 51. IMPRESSIONS: 1. Elevated troponin. 2. Positive for influenza. 3. Diabetes mellitus. 4. Hypertension. 5. Dyslipidemia. 6. History of cerebrovascular accident. 7. Tobacco abuse. RECOMMENDATIONS: 1. Mr. Sanderson presented with shortness of breath and was found to be influenza A positive. He will be treated by the primary team for such. 2. His first troponin came back as mildly elevated. This is most likely type 2 in nature due to his influenza A infection. We will continue to follow his troponins and if stable, most likely does not need further testing. If there is a rise in these values, then he will need an ischemic evaluation. If a significant rise, he may need coronary visualization. 3. We will check a 2-D echo to look at his overall left ventricular function, cardiac structure and possible valvulopathies. 4. I spoke to him for greater than 3 minutes about tobacco cessation. 5. He can continue on his home cardiac medications including Plavix, Crestor, metoprolol and losartan. 6. If troponin is relatively stable, the heparin drip can be stopped, but if troponin continues to elevate, then would continue on this for at least 48-hours. 7. The patient has no significant chest pain and troponin elevation is most likely type 2 in nature. Thank you for allowing me to see Chris Sanderson. If there are any questions, please do not hesitate to call. Nikita Pérez, DO VGP/DL/rr , 08:50 AM , 09:22 AM
[2017-05-12] MEDS: ATORVASTATIN 40 MG TAB PO SCH (10:43)
[2017-05-12] MEDS: LOSARTAN 50 MG TAB PO SCH (10:43)
--- NOTE | 2017-05-12 10:58 | HHI.HP ---
[facility] Thomas Light MD Admission Diagnosis Dyspnea; elevated troponin I/acs; influenza A Diagnoses: (1) Dyspnea (2) Influenza A (3) Elevated troponin I level Chief Complaint: Shortness of breath Travel History International Travel<30 Days: No Contact w/Intl Traveler <30 Da: No Traveled to Known Affected Are: No History of Present Illness This is a pleasant 66-year-old male patient with a known medical history of hyperlipidemia, diabetes, hypertension and history of CVA who presented to the ER with complaints of shortness of breath. Patient states that he woke up early this morning out of sleep unable to catch his breath. Patient states that he never had this before. Denies any chest pain. Denies any recent illness including fever, chills, cough, abdominal pain, nausea, vomiting or diarrhea. Does admit to a nonproductive cough for 1 week. He does state that his had flu last week, and did not receive the flu vaccine last year. Patient is very active and healthy in his usual state of health. Review of Systems Constitutional: DENIES: Fatigue, Fever, Chills Eyes: DENIES: Blurred vision, Diplopia Respiratory: COMPLAINS OF: Cough, Shortness of breath, DENIES: Sputum production Cardiovascular: DENIES: Chest pain Gastrointestinal: DENIES: Abdominal pain, Black stools, Bloody stools, Constipation, Diarrhea, Nausea, Vomiting Musculoskeletal: DENIES: Joint pain Immunologic/allergic: DENIES: Eczema Neurologic: DENIES: Abnormal gait Psychiatric: DENIES: Anxiety Except as stated in HPI: all other systems reviewed are Neg Past Family Social History Past Medical History Type 2 diabetes Hypertension Dyslipidemia History of CVA Tobacco abuse Past Surgical History Hernia repair 3 Cholecystectomy Wire mesh placement in the abdomen Reported Medications Active Reported Losartan (Losartan Potassium) 100 Mg Tab 100 Mg PO DAILY Metoprolol Succinate ER 24 HR (Metoprolol Succinate) 25 Mg Tab 25 Mg PO DAILY Plavix (Clopidogrel Bisulfate) 75 Mg Tab 75 Mg PO DAILY Crestor (Rosuvastatin Calcium) 20 Mg Tab 20 Mg PO DAILY Metformin (Metformin HCl) 1,000 Mg Tab 1,000 Mg PO BIDPC With meals Allergies: Coded Allergies: No Known Allergies (Unverified Allergy, Unknown, 05/12/17) Active Ordered Medications Current Medications Medications (Trade) Dose Ordered Sig/Avani Route Start Time Stop Time Status Last Admin (NS Flush) 2 ml BID IV FLUSH 05/12/17 09:00 (NS Flush) 2 ml UNSCH PRN IV FLUSH 05/12/17 06:45 (D50w (Vial) Inj) 50 ml UNSCH PRN IV PUSH 05/12/17 06:45 (Glucagon Inj) 1 mg UNSCH PRN OTHER 05/12/17 06:45 (NovoLOG SUPPLEMENTAL SCALE) 1 ACHS SLIDING SCALE SQ 05/12/17 08:00 05/12/17 09:07 Heparin Sodium/ Dextrose 250 ml @ 10 mls/hr TITRATE PRN IV 05/12/17 06:45 05/12/17 07:24 (Plavix) 75 mg DAILY PO 05/12/17 09:00 05/12/17 11:28 (Cozaar) 100 mg DAILY PO 05/12/17 09:00 05/12/17 10:43 (Toprol Xl) 25 mg DAILY PO 05/12/17 09:00 (Lipitor) 40 mg DAILY PO 05/12/17 09:00 05/12/17 10:43 (Tamiflu) 75 mg BID PO 05/12/17 21:00 (Tylenol) 650 mg Q4H PRN PO 05/12/17 14:00 05/12/17 13:50 Family History Maternal medical history significant for colon cancer. Paternal medical history significant for diabetes. Social History Patient does admit to 1 pack cigarettes every 4 days for the last 55 years. Does admit to occasional alcohol use. Denies any illicit drug use. Physical Exam Vital Signs Vital Signs Date Time Temp Pulse Resp B/P (MAP) Pulse Ox O2 Delivery O2 Flow Rate FiO2 05/12/17 08:00 96.7 51 18 168/93 (118) 98 05/12/17 07:35 05/12/17 07:04 97 Room Air 05/12/17 07:04 47 05/12/17 07:04 98.7 51 18 149/84 (105) 97 Room Air 05/12/17 05:47 51 16 177/87 (117) 97 Room Air 05/12/17 05:15 50 98 Room Air 05/12/17 05:01 98.0 54 18 197/92 (662) 57 Physical Exam GENERAL: Well-developed, well-nourished patient in NAD. SKIN: Warm and dry. No rash. HEAD: Normocephalic. Atraumatic. EYES: Pupils equal and round. No scleral icterus. No injection or drainage. ENT: No nasal bleeding or discharge. Mucous membranes pink and moist. NECK: Supple. Trachea midline. CARDIOVASCULAR: Regular rate and rhythm. S1, S2 noted. No murmur appreciated. RESPIRATORY: No accessory muscle use. Clear to auscultation. Breath sounds equal bilaterally. GASTROINTESTINAL: Abdomen soft, non-tender, nondistended. Normoactive bowel sounds x4. MUSCULOSKELETAL: No obvious deformities. Extremities without clubbing, cyanosis , or edema. NEUROLOGICAL: Awake and alert. No obvious cranial nerve deficits. Motor grossly within normal limits. 5/5 muscle strength in bilateral upper and lower extremities. Normal speech. Laboratory Laboratory Tests Test 05/12/17 05:20 White Blood Count 10.0 Red Blood Count 4.88 Hemoglobin 13.3 Hematocrit 41.8 Mean Corpuscular Volume 85.8 Mean Corpuscular Hemoglobin 27.4 Mean Corpuscular Hemoglobin Concent 31.9 Red Cell Distribution Width 13.7 Platelet Count 284 Mean Platelet Volume 8.3 Neutrophils (%) (Auto) 72.3 Lymphocytes (%) (Auto) 21.0 Monocytes (%) (Auto) 5.0 Eosinophils (%) (Auto) 1.1 Basophils (%) (Auto) 0.6 Neutrophils # (Auto) 7.2 Lymphocytes # (Auto) 2.1 Monocytes # (Auto) 0.5 Eosinophils # (Auto) 0.1 Basophils # (Auto) 0.1 CBC Comment DIFF FINAL Differential Comment Prothrombin Time 10.1 Prothromb Time International Ratio 1.0 Activated Partial Thromboplast Time 26.8 Blood Urea Nitrogen 13 Creatinine 0.67 Random Glucose 145 Calcium Level 8.5 Magnesium Level 2.4 Sodium Level 142 Potassium Level 3.7 Chloride Level 107 Carbon Dioxide Level 28.5 Anion Gap 7 Estimat Glomerular Filtration Rate 143 Total Creatine Kinase 151 Creatine Kinase MB 1.1 Troponin I 0.08 B-Type Natriuretic Peptide 51 Date/Time Source Procedure Growth Status 05/12/17 05:20 Nasal Washing Influenza Types A,B Antigen (KAREN) - Final Positive For Flu A Antigen Complete Result Diagram: 05/12/1751905/12/17519 Imaging Last Impressions Chest X-Ray 05/12/17509 Signed Impressions: Service Date/Time: Friday, May 12, 2017 05:13 - CONCLUSION: Stable chest x-ray without an acute cardiopulmonary abnormality identified. Fernando Zuniga MD Septic Shock Reassessment Septic shock perfusion: reassessment completed Caprini VTE Risk Assessment Caprini VTE Risk Assessment: Mod/High Risk (score >= 2) Caprini Risk Assessment Model Point Value = 1 Point Value = 2 Point Value = 3 Point Value = 5 Age 41-60 Minor surgery BMI > 25 kg/m2 Swollen legs Varicose veins or History of unexplained or recurrent spontaneous Oral contraceptives or hormone replacement Sepsis (< 1 month) Serious lung disease, including pneumonia (< 1 month) Abnormal pulmonary function Acute myocardial infarction Congestive heart failure (< 1 month) History of inflammatory bowel disease Medical patient at bed rest Age 61-74 Arthroscopic surgery Major open surgery (> 45 min) Laparoscopic surgery (> 45 min) Malignancy Confined to bed (> 72 hours) Immobilizing plaster cast Central venous access Age >= 75 History of VTE Family history of VTE Factor V Leiden Prothrombin [id number] Lupus anticoagulant Anticardiolipin antibodies Elevated serum homocysteine Heparin-induced thrombocytopenia Other congenital or acquired thrombophilia Stroke (< 1 month) Elective arthroplasty Hip, pelvis, or leg fracture Acute spinal cord injury (< 1 month) Prophylaxis Regimen Total Risk Factor Score Risk Level Prophylaxis Regimen 0-1 Low Early ambulation 2 Moderate Order ONE of the following: *Sequential Compression Device (SCD) *Heparin 5000 units SQ BID 3-4 Higher Order ONE of the following medications: *Heparin 5000 units SQ TID *Enoxaparin/Lovenox 40 mg SQ daily (WT < 150 kg, CrCl > 30 mL/min) *Enoxaparin/Lovenox 30 mg SQ daily (WT < 150 kg, CrCl > 10-29 mL/min) *Enoxaparin/Lovenox 30 mg SQ BID (WT < 150 kg, CrCl > 30 mL/min) AND/OR *Sequential Compression Device (SCD) 5 or more Highest Order ONE of the following medications: *Heparin 5000 units SQ TID (Preferred with Epidurals) *Enoxaparin/Lovenox 40 mg SQ daily (WT < 150 kg, CrCl > 30 mL/min) *Enoxaparin/Lovenox 30 mg SQ daily (WT < 150 kg, CrCl > 10-29 mL/min) *Enoxaparin/Lovenox 30 mg SQ BID (WT < 150 kg, CrCl > 30 mL/min) AND *Sequential Compression Device (SCD) Assessment and Plan Problem List: (1) Dyspnea ICD Code: R06.00 - Dyspnea, unspecified Status: Acute (2) Influenza A ICD Code: J10.1 - Influenza due to other identified influenza virus with other respiratory manifestations Status: Acute (3) Elevated troponin I level ICD Code: R74.8 - Abnormal levels of other serum enzymes Status: Acute Assessment and Plan This is a pleasant 66-year-old male patient with a known medical history of hyperlipidemia, diabetes, hypertension and history of CVA who presented to the ER with complaints of shortness of breath. Influenza A antigen positive with associated dyspnea and cough Nasal washing positive for flu antigen A. Afebrile. No leukocytosis. Given Tamiflu in ED. Continued on 75 mg twice daily p.o. Supplemental O2 as needed. Comfortable on room air. CBC and BMP reviewed, essentially unremarkable. Chest x-ray reviewed, no acute cardiopulmonary disease. Supportive care Mildly elevated troponin: 0.08, 0.07. Awaiting third enzyme. Follow trend. Denies any chest pain. Patient placed on heparin drip. Cardiology is seen patient, most likely secondary to influenza infection. We will continue to follow troponin trends. 2D echo pending. Follow. Okay to continue home cardiac medications including Plavix, Crestor, metoprolol and losartan. EKG reviewed, showing bradycardia, heart rate 50. Continue on cardiac telemetry. Type 2 diabetes mellitus, chronic: Accu-Chek before meals at bedtime, sliding scale, cover as needed. Monitor blood sugar trends. Hypertension, chronic: Continue home losartan. Monitor BP trends. Hyperlipidemia, chronic: Continue home statin. History of CVA: Continue home Plavix. Tobacco abuse: Encouraged cessation. DVT prophylaxis: Heparin. Problem Qualifiers (1) Dyspnea: Qualified Codes: R06.01 - Orthopnea [place] MCKEON May 12, 2017 10:58
[2017-05-12 11:52] LABS: TROPONIN I 0.07 NG/ML (0.02-0.05)
[2017-05-12] MEDS ORDERED: ACETAMINOPHEN 325 MG TAB PO PRN (14:00)
--- NOTE | 2017-05-12 15:45 | ECHRPT ---
Indication: elevated trop CONCLUSIONS The left ventricular systolic function is normal with an estimated ejection fraction in the range of 55-60%. No regional wall motion abnormalities are present. Mild concentric left ventricular hypertrophy. Trace mitral valve regurgitation. There is mild tricuspid valve regurgitation. BP: / HR: Rhythm: MEASUREMENTS (Male / Female) Normal Values Technical Quality:Good 2D ECHO LV Diastolic Diameter PLAX 5.4 cm 4.2 - 5.9 / 3.9 - 5.3 cm LV Systolic Diameter PLAX 4.3 cm IVS Diastolic Thickness 1.7 cm 0.6 - 1.0 / 0.6 - 0.9 cm LVPW Diastolic Thickness 1.1 cm 0.6 - 1.0 / 0.6 - 0.9 cm LV Relative Wall Thickness 0.5 RV Internal Dim ED PLAX 3.4 cm M-MODE Aortic Root Diameter MM 3.5 cm LA Systolic Diameter MM 3.9 cm LA Ao Ratio MM 1.1 AV Cusp Separation MM 2.2 cm DOPPLER Mitral E Point Velocity 48.9 cm/s Mitral A Point Velocity 50.8 cm/s Mitral E to A Ratio 1.0 LV E' Lateral Velocity 7.1 cm/s Mitral E to LV E' Lateral Ratio 6.9 LV E' Septal Velocity 7.2 cm/s Mitral E to LV E' Septal Ratio 6.8 FINDINGS LEFT VENTRICLE Normal left ventricular size. The left ventricular systolic function is normal with an estimated ejection fraction in the range of 55-60%. No regional wall motion abnormalities are present. Mild concentric left ventricular hypertrophy. RIGHT VENTRICLE Normal right ventricular size and systolic function. LEFT ATRIUM The left atrial size is mildly dilated. RIGHT ATRIUM The right atrial size is normal. ATRIAL SEPTUM Normal atrial septal thickness AORTA The aortic root and proximal ascending aorta are normal in size on limited imaging. MITRAL VALVE Structurally normal mitral valve. Trace mitral valve regurgitation. AORTIC VALVE Trileaflet aortic valve. No aortic valve stenosis or regurgitation. TRICUSPID VALVE Structurally normal tricuspid valve. There is mild tricuspid valve regurgitation. No tricuspid valve stenosis. PULMONARY VALVE The pulmonary valve is not well visualized. PERICARDIUM No pericardial effusion. Nikita Pérez DO (Electronically Signed) Final Date:12 May 2017 15:44
[2017-05-12 19:14] LABS: TROPONIN I 0.07 NG/ML (0.02-0.05)
[2017-05-12] MEDS ORDERED: ENALAPRILAT 2.5 MG/2 ML VIAL IV PUSH PRN (20:45)
[2017-05-12] MEDS: OSELTAMIVIR PHOSPHATE 75 MG CAP PO SCH (20:52)
[2017-05-12] MEDS: HEPARIN SODIUM - SQ 10,000 UNITS/ML VIAL SQ SCH (20:52)
[2017-05-13] VITALS: BP 182/86; PULSE 48; RESP 20; TEMP 97.7; O2SAT 95
[2017-05-13 04:00] VITALS: BP 177/85; PULSE 51; RESP 20; TEMP 97.3; O2SAT 95
[2017-05-13 06:58] LABS: AUTOMATED NEUTROPHIL # 5.6 TH/MM3 (1.8-7.7); BASOPHIL # 0.1 TH/MM3 (0-0.2); BASOPHIL % 0.9 % (0.0-2.0); EOSINOPHIL # 0.2 TH/MM3 (0-0.4); HEMATOCRIT 39.5 % (39.0-51.0); LYMPH % 25.5 % (9.0-44.0); LYMPHOCYTE # 2.2 TH/MM3 (1.0-4.8); MEAN CELL VOLUME 84.2 FL (80.0-100.0); MEAN CORPUSCULAR HEMOGLOBIN 27.6 PG (27.0-34.0); MEAN CORPUSCULAR HGB CONC 32.8 % (32.0-36.0); MEAN PLATELET VOLUME 8.1 FL (7.0-11.0); MONO % 6.7 % (0.0-8.0); MONOCYTE # 0.6 TH/MM3 (0-0.9); NEUT % 64.9 % (16.0-70.0); PLATELET COUNT 273 TH/MM3 (150-450); RED BLOOD COUNT 4.69 MIL/MM3 (4.50-5.90); RED CELL DISTRIBUTION WIDTH 13.6 % (11.6-17.2); WHITE BLOOD COUNT 8.7 TH/MM3 (4.0-11.0)
[2017-05-13 07:09] LABS: BICARBONATE 29.1 MEQ/L (21.0-32.0); CALCIUM 8.4 MG/DL (8.5-10.1)
[2017-05-13 07:13] LABS: CREATININE 0.69 MG/DL (0.60-1.30)
--- NOTE | 2017-05-13 07:30 | EKG ---
Date Performed: 05/12/2017 Time Performed: 05:36:35 PTAGE: 66 years EKG: SINUS BRADYCARDIA POOR R-WAVE PROGRESSION ABNORMAL ECG Since PREVIOUS TRACING , no significant change noted PREVIOUS TRACIN05/15/2016 16.11 DOCTOR: Miguelangel King Interpretating Date/Time 05/13/2017 07:29:37
--- NOTE | 2017-05-13 07:41 | PD.CARD.PN ---
Subjective Subjective Remarks Pt says he feels much better, no sob or cp Objective Medications Current Medications Medications (Trade) Dose Ordered Sig/Avani Route Start Time Stop Time Status Last Admin (NS Flush) 2 ml BID IV FLUSH 05/12/17 09:00 05/12/17 20:52 (NS Flush) 2 ml UNSCH PRN IV FLUSH 05/12/17 06:45 (D50w (Vial) Inj) 50 ml UNSCH PRN IV PUSH 05/12/17 06:45 (Glucagon Inj) 1 mg UNSCH PRN OTHER 05/12/17 06:45 (NovoLOG SUPPLEMENTAL SCALE) 1 ACHS SLIDING SCALE SQ 05/12/17 08:00 05/12/17 09:07 (Plavix) 75 mg DAILY PO 05/12/17 09:00 05/12/17 11:28 (Cozaar) 100 mg DAILY PO 05/12/17 09:00 05/12/17 10:43 (Toprol Xl) 25 mg DAILY PO 05/12/17 09:00 Future Hold (Lipitor) 40 mg DAILY PO 05/12/17 09:00 05/12/17 10:43 (Tamiflu) 75 mg BID PO 05/12/17 21:00 05/12/17 20:52 (Tylenol) 650 mg Q4H PRN PO 05/12/17 14:00 05/12/17 13:50 (Heparin Inj) 5,000 units Q12HR SQ 05/12/17 21:00 (Vasotec Inj) 2.5 mg Q8H PRN IV PUSH 05/12/17 20:45 Vital Signs / I&O Vital Signs Date Time Temp Pulse Resp B/P (MAP) Pulse Ox O2 Delivery O2 Flow Rate FiO2 05/13/17 04:00 97.3 51 20 177/85 (115) 95 05/13/17 00:00 97.7 48 20 182/86 (118) 95 05/12/17 23:00 47 05/12/17 20:25 96 21 05/12/17 20:00 97.2 48 20 176/85 (115) 95 05/12/17 16:00 97.3 46 20 164/91 (115) 95 05/12/17 15:00 48 05/12/17 14:57 18 05/12/17 12:00 98.7 51 20 138/81 (100) 98 05/12/17 08:00 51 05/12/17 08:00 96.7 51 18 168/93 (118) 98 I/O 05/12/17 05/12/17 05/12/17 05/13/17 05/13/17 05/13/17 07:00 15:00 23:00 07:00 15:00 23:00 Intake Total 530 ml 95 ml 240 ml Balance 530 ml 95 ml 240 ml Intake Oral 530 ml 240 ml IV Total 95 ml # Voids 3 3 # Bowel Movements 1 2 Physical Exam GENERAL: This is a well-nourished, well-developed patient, in no apparent distress. CARDIOVASCULAR: Regular rate and rhythm without murmurs, gallops, or rubs. RESPIRATORY: Clear to auscultation. Breath sounds equal bilaterally. No wheezes , rales, or rhonchi. GASTROINTESTINAL: Abdomen soft, non-tender, nondistended. Normal active bowel sounds MUSCULOSKELETAL: Extremities without clubbing, cyanosis, or edema. NEURO: Alert & Oriented x4 to person, place, time, situation. Moves all ext x4 Laboratory Laboratory Tests Test 05/12/17 11:27 05/12/17 13:35 05/12/17 18:15 05/12/17 20:15 Total Creatine Kinase 123 U/L 124 U/L Troponin I 0.07 NG/ML 0.07 NG/ML Activated Partial Thromboplast Time 47.6 SEC 26.9 SEC Test 05/13/17 06:27 White Blood Count 8.7 TH/MM3 Red Blood Count 4.69 MIL/MM3 Hemoglobin 13.0 GM/DL Hematocrit 39.5 % Mean Corpuscular Volume 84.2 FL Mean Corpuscular Hemoglobin 27.6 PG Mean Corpuscular Hemoglobin Concent 32.8 % Red Cell Distribution Width 13.6 % Platelet Count 273 TH/MM3 Mean Platelet Volume 8.1 FL Neutrophils (%) (Auto) 64.9 % Lymphocytes (%) (Auto) 25.5 % Monocytes (%) (Auto) 6.7 % Eosinophils (%) (Auto) 2.0 % Basophils (%) (Auto) 0.9 % Neutrophils # (Auto) 5.6 TH/MM3 Lymphocytes # (Auto) 2.2 TH/MM3 Monocytes # (Auto) 0.6 TH/MM3 Eosinophils # (Auto) 0.2 TH/MM3 Basophils # (Auto) 0.1 TH/MM3 CBC Comment DIFF FINAL Differential Comment Blood Urea Nitrogen 11 MG/DL Creatinine 0.69 MG/DL Random Glucose 123 MG/DL Calcium Level 8.4 MG/DL Sodium Level 142 MEQ/L Potassium Level 3.7 MEQ/L Chloride Level 106 MEQ/L Carbon Dioxide Level 29.1 MEQ/L Anion Gap 7 MEQ/L Estimat Glomerular Filtration Rate 138 ML/MIN Imaging Last Impressions Chest X-Ray 05/12/17 0510 Signed Impressions: Service Date/Time: Friday, May 12, 2017 05:13 - CONCLUSION: Stable chest x-ray without an acute cardiopulmonary abnormality identified. Fernando Zuniga MD Assessment and Plan Problem List: (1) Elevated troponin I level ICD Codes: R74.8 - Abnormal levels of other serum enzymes Status: Acute Plan: Minimal; likely type two; no chest pain even during his physical activity ; given active Flu-A would defer any ischemic w/u to the outpt setting, presuming no major findings on his echo (2) Influenza A ICD Codes: J10.1 - Influenza due to other identified influenza virus with other respiratory manifestations Status: Acute Plan: Mgt per the primary team (3) Tobacco abuse counseling ICD Codes: Z71.6 - Tobacco abuse counseling Plan: tried but he was resistant Assessment and Plan will sign off, he can f/u with Dr. Pérez in 1-2 weeks. Franco Montejo MD May 13, 2017 07:41
[2017-05-13 08:00] VITALS: BP 184/86; PULSE 51; RESP 16; TEMP 97.2; O2SAT 94
[2017-05-13] MEDS: INSULIN ASPART SUPPLEMENTAL SCALE SQ SCH ×2 (08:00→12:00)
[2017-05-13] MEDS: CLOPIDOGREL 75 MG TAB PO SCH (08:03)
[2017-05-13] MEDS: OSELTAMIVIR PHOSPHATE 75 MG CAP PO SCH (08:03)
[2017-05-13] MEDS: ATORVASTATIN 40 MG TAB PO SCH (08:03)
[2017-05-13] MEDS: LOSARTAN 50 MG TAB PO SCH (08:03)
[2017-05-13] MEDS: SODIUM CHLORIDE 0.9% FLUSH 10 ML FLUSH IV FLUSH SCH (08:04)
[2017-05-13] MEDS: HEPARIN SODIUM - SQ 10,000 UNITS/ML VIAL SQ SCH (08:04)
[2017-05-13 08:20] VITALS: O2SAT 94
--- NOTE | 2017-05-13 11:00 | HHI.PR ---
Subjective Remarks Follow-up influenza and hypertension. Patient seen and examined, lying in bed comfortably. No acute distress. All symptoms have resolved. He denies any dyspnea. Afebrile. Patient hypertensive, with bradycardia. Metoprolol has been held, cardiac telemetry showing heart rate in the low 40s. Discussed with patient at length regarding importance of holding metoprolol if heart rate less than 60 at home. Started on an additional hydrochlorothiazide to assist with blood pressure management. Encouraged follow-up with PCP in the outpatient setting. Will discharge today once blood pressure is decreased. Patient has been seen by cardiology and cleared. Follow-up in 1-2 weeks. Objective Vitals Vital Signs Date Time Temp Pulse Resp B/P (MAP) Pulse Ox O2 Delivery O2 Flow Rate FiO2 05/13/17 08:00 97.2 51 16 184/86 (118) 94 05/13/17 04:00 97.3 51 20 177/85 (115) 95 05/13/17 00:00 97.7 48 20 182/86 (118) 95 05/12/17 23:00 47 05/12/17 20:25 96 21 05/12/17 20:00 97.2 48 20 176/85 (115) 95 05/12/17 16:00 97.3 46 20 164/91 (115) 95 05/12/17 15:00 48 05/12/17 14:57 18 05/12/17 12:00 98.7 51 20 138/81 (100) 98 I/O 05/12/17 05/12/17 05/12/17 05/13/17 05/13/17 05/13/17 07:00 15:00 23:00 07:00 15:00 23:00 Intake Total 530 ml 95 ml 240 ml Balance 530 ml 95 ml 240 ml Intake Oral 530 ml 240 ml IV Total 95 ml # Voids 3 3 # Bowel Movements 1 2 Result Diagram: 05/13/17 0627 05/13/17 0627 Imaging Last Impressions Chest X-Ray 05/12/17 0510 Signed Impressions: Service Date/Time: Friday, May 12, 2017 05:13 - CONCLUSION: Stable chest x-ray without an acute cardiopulmonary abnormality identified. Fernando Zuniga MD Objective Remarks GENERAL: Well-developed, well-nourished patient in NAD. SKIN: Warm and dry. No rash. HEAD: Normocephalic. Atraumatic. EYES: Pupils equal and round. No scleral icterus. No injection or drainage. ENT: No nasal bleeding or discharge. Mucous membranes pink and moist. NECK: Supple. Trachea midline. CARDIOVASCULAR: Regular rate and rhythm. S1, S2 noted. No murmur appreciated. RESPIRATORY: No accessory muscle use. Clear to auscultation. Breath sounds equal bilaterally. GASTROINTESTINAL: Abdomen soft, non-tender, nondistended. Normoactive bowel sounds x4. MUSCULOSKELETAL: No obvious deformities. Extremities without clubbing, cyanosis , or edema. NEUROLOGICAL: Awake and alert. No obvious cranial nerve deficits. Motor grossly within normal limits. 5/5 muscle strength in bilateral upper and lower extremities. Normal speech. PSYCHIATRIC: Appropriate mood and affect; insight and judgment normal. A/P Problem List: (1) Dyspnea ICD Code: R06.00 - Dyspnea, unspecified Status: Acute (2) Influenza A ICD Code: J10.1 - Influenza due to other identified influenza virus with other respiratory manifestations Status: Acute (3) Elevated troponin I level ICD Code: R74.8 - Abnormal levels of other serum enzymes Status: Acute Assessment and Plan This is a pleasant 66-year-old male patient with a known medical history of hyperlipidemia, diabetes, hypertension and history of CVA who presented to the ER with complaints of shortness of breath. Influenza A antigen positive with associated dyspnea and cough Nasal washing positive for flu antigen A. Afebrile. No leukocytosis. Given Tamiflu in ED. Continued on 75 mg twice daily p.o. Supplemental O2 as needed. Comfortable on room air. CBC and BMP reviewed, essentially unremarkable. Chest x-ray reviewed, no acute cardiopulmonary disease. Supportive care. Mildly elevated troponin: 0.08, 0.07, 0.07. Denies any chest pain. Patient placed on heparin drip initially and DC'd by cardiology. Cardiology is seen patient, most likely secondary to influenza infection. 2D echo showing normal LV function and EF 55-60%. Okay to continue home cardiac medications including Plavix, Crestor, metoprolol and losartan per cardiology. EKG reviewed, showing bradycardia, heart rate 40's. Will hold metoprolol for heart rate less than 60. Added hydrochlorothiazide. Will discharge blood pressure controlled. Will follow-up with cardiology 1-2 weeks. Type 2 diabetes mellitus, chronic: Accu-Chek before meals at bedtime, sliding scale, cover as needed. Monitor blood sugar trends. Have been controlled. Hypertension, chronic: Continue home losartan. Monitor BP trends. Hyperlipidemia, chronic: Continue home statin. History of CVA: Continue home Plavix. Tobacco abuse: Encouraged cessation. DVT prophylaxis: Heparin. Problem Qualifiers (1) Dyspnea: Qualified Codes: R06.01 - Orthopnea Brittni Null May 13, 2017 11:00
[2017-05-13] MEDS ORDERED: POTASSIUM CHLORIDE 10 MEQ CONTROLLED RELEASE TAB PO SCH (11:30)
[2017-05-13] MEDS ORDERED: HYDROCHLOROTHIAZIDE 12.5 MG CAP PO SCH (11:30)
--- NOTE | 2017-05-13 11:39 | HHI.DCPOC ---
Discharge Care Plan Diagnosis: (1) Hypertension (2) Diabetes (3) Elevated troponin I level (4) Influenza A (5) Tobacco abuse counseling Goals to Promote Your Health * To prevent worsening of your condition and complications * To maintain your health at the optimal level Directions to Meet Your Goals Take your medications as prescribed Follow your dietary instruction Follow activity as directed Keep your appointments as scheduled Take your immunizations and boosters as scheduled If your symptoms worsen call your PCP, if no PCP go to Urgent Care Center or Emergency Room Smoking is Dangerous to Your Health. Avoid second hand smoke Call the 24-hour hour crisis hotline for domestic abuse at Brittni Null May 13, 2017 11:39
[2017-05-13] MEDS ORDERED: OSEL75 PO (11:44)
[2017-05-13] MEDS ORDERED: KLOR10TA PO (11:44)
[2017-05-13] MEDS ORDERED: HYDR12.57 PO (11:44)
[2017-05-13] MEDS ORDERED: METO1TAB42 PO (11:44)
[2017-05-13] MEDS ORDERED: cloNIDine HCL 0.1 MG TAB PO PRN (11:45)
[2017-05-13 12:00] VITALS: BP 175/82; PULSE 54; RESP 16; TEMP 97.3; O2SAT 94
[2017-05-13 13:20] VITALS: BP 164/85; PULSE 51
--- NOTE | 2017-05-13 13:58 | EKG ---
Date Performed: 05/12/2017 Time Performed: 18:22:03 PTAGE: 66 years EKG: ECTOPIC ATRIAL RHYTHM PREVIOUS TRACING : 05/12/2017 11.15 DOCTOR: Farhat Gregory Interpretating Date/Time 05/13/2017 13:57:38
--- NOTE | 2017-05-13 14:58 | EKG ---
Date Performed: 05/12/2017 Time Performed: 11:15:52 PTAGE: 66 years EKG: SINUS BRADYCARDIA PREVIOUS TRACING : 05/12/2017 05.36 DOCTOR: Farhat Gregory Interpretating Date/Time 05/13/2017 14:57:59
== END 2017-05-13 14:30 | disposition home or self-care (01) ==
LOC: PHED 04:57 → PHEDA 06:35 → PH3B 07:50
PROVIDERS: ADMIT Hospitalist; ATTEND Hospitalist
DX: R06.00 Dyspnea, unspecified (principal); J10.1 Influenza due to other identified influenza virus with other respiratory manifestations; R74.8 Abnormal levels of other serum enzymes; R06.02 Shortness of breath; R06.01 Orthopnea; R00.1 Bradycardia, unspecified; R94.31 Abnormal electrocardiogram [ECG] [EKG]; I24.9 Acute ischemic heart disease, unspecified; I10 Essential (primary) hypertension; E78.00 Pure hypercholesterolemia, unspecified; E11.9 Type 2 diabetes mellitus without complications; F17.210 Nicotine dependence, cigarettes, uncomplicated; Z79.899 Other long term (current) drug therapy; Z79.02 Long term (current) use of antithrombotics/antiplatelets; Z79.84 Long term (current) use of oral hypoglycemic drugs; Z86.73 Personal history of transient ischemic attack (TIA), and cerebral infarction without residual deficits
CPT/HCPCS: 71045; 80048; 82550; 82552; 82948; 83735; 83880; 84484; 85025; 85610; 85730; 87804; 93005; 93306; 96365; 96372; 99285; G0378; J1644; J1815